=== PATIENT | female | born 1960 | race African-American/Black ===

== ENCOUNTER 2017-03-27 21:24 | Emergency (ER) | payer MEDICAID, OTHER ==
[~2017-03-27] VITALS: Ht 170.2 cm; Wt 60.8 kg
[~2017-03-27 21:24] MED LIST: DITROPAN10 MG ORAL; TAPAZOLE10 MG ORAL
[2017-03-27] MEDS ORDERED: oxyCODONE HCL/Acetaminophen 5/325mg ORAL ONE (22:45)
[2017-03-28 02:01] VITALS: BP 109/66
--- NOTE | 2017-03-28 03:33 | Emergency Room Report ---
History of Present Illness General Chief Complaint: Lower Extremity Injury Source: Patient Present Illness HPI 56YOF with 1 week right hip pain radiating to right thigh, anterior part of right thigh Denies calf pain/swelling/ttp Started after driving 1 hour Denies trauma Had bilateral hip replacement a while ago Was injecting herself with ?lovenox as recent as 4 months prior but not sure why Denies history of DVT, PE Allergies: Coded Allergies: No Known Allergies (Unverified , 01/09/14) Patient History Past Medical History: none Past Surgical History: other - hip replacement Pertinent Family History: none Social History: Denies: smoking, alcohol use, drug use Last Menstrual Period: None Now: No Immunizations: UTD Reviewed Nursing Documentation: PMH: Agreed, PSxH: Agreed Review of Systems All Other Systems: negative except mentioned in HPI Physical Exam Vital Signs Date Time Temp Pulse Resp B/P (MAP) Pulse Ox O2 Delivery O2 Flow Rate FiO2 03/27/17 21:46 97.3 71 18 109/66 98 Room Air Sp02 EP Interpretation: reviewed, normal General Appearance: normal inspection, well appearing, no apparent distress, alert Head: atraumatic ENT: normal ENT inspection, hearing grossly normal, normal voice Neck: normal inspection, full range of motion, supple, no bony tend Respiratory: normal inspection, lungs clear, normal breath sounds, no respiratory distress, no retraction, no wheezing Gastrointestinal: normal inspection, normal bowel sounds, non tender, soft, no guarding, no hernia Genitourinary: no CVA tenderness Musculoskeletal: non-tender, no calf tenderness, Korey's Sign negative, other - Right hip: ROM intact. Post-surgical scar overlying hip seen. pelvis stable. Neurologic: normal inspection, alert, responsive, speech normal Psychiatric: normal inspection, judgement/insight normal, mood/affect normal Skin: normal inspection, normal color, no rash Lymphatic: normal inspection Medical Decision Making Diagnostic Impression: Primary Impression: Hip pain, acute Qualified Codes: M25.551 - Pain in right hip ER Course Pelvis [address] Compa Flanagan MD No fx, dislocation hardware intact bilaterally Ultrasound negative for DVT on techs verbal report Reassured patient DC home Last Vital Signs Date Time Temp Pulse Resp B/P (MAP) Pulse Ox O2 Delivery O2 Flow Rate FiO2 03/28/17 02:01 97.4 18 109/66 98 Room Air 03/27/17 21:46 71 Status: improved Disposition: HOME, SELF-CARE Condition: Improved Patient Instructions: Hip Pain Additional Instructions: - Xray shows hardware intact - no DVT on ultrasound - Follow up with your doctor in 1 week COMPA FLANAGAN M.D. Mar 28, 2017 03:33
--- NOTE | 2017-03-28 11:35 | Diagnostic Imaging Report ---
Indication: PAIN Technique: One view of the pelvis Comparison: None Findings: There is a right hip arthroplasty prosthesis in place. There is a left hip hemiarthroplasty prosthesis in place. No acute fractures. Sacroiliac joint spaces are preserved. There are vascular calcifications Impression: No acute process
--- NOTE | 2017-03-30 09:41 | Diagnostic Imaging Report ---
APPROVED REPORT CPT Code: 58004 Present Symptoms Lower Extremity Pain: Right RIGHT LEG: Venous imaging reveals a patent deep venous system. There is no evidence of thrombus within the femoral, popliteal or tibial segments. The greater saphenous vein is also within normal limits. Doppler indicates normal spontaneous flow within these segments.
== END 2017-03-28 02:01 | disposition home or self-care (01) ==
LOC: EMR 21:59
DX: M25.551 Pain in right hip (principal); M79.651 Pain in right thigh; Z96.643 Presence of artificial hip joint, bilateral
CPT/HCPCS: 72170; 93971; 99283

== ENCOUNTER 2017-10-22 17:14 | Emergency (ER) | payer OTHER ==
[~2017-10-22] VITALS: Ht 170.2 cm; Wt 62.6 kg
[2017-10-22 17:33] VITALS: BP 161/84
--- NOTE | 2017-10-22 17:43 | Emergency Room Report ---
History of Present Illness General Chief Complaint: Upper Extremity Injury Source: Patient (Gaudencio Yang) Present Illness HPI 57-year-old female patient presents to ER complaining of left wrist pain status post injury a few hours ago. 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 Patient reports unable to move wrist. Patient reports swelling at left wrist. Patient denies fever, chest pain, shortness of breath. She denies hitting her head loss consciousness. (Gaudencio Yang) Allergies: Coded Allergies: No Known Allergies (Unverified , 01/09/14) Patient History Past Medical History: see triage record Last Menstrual Period: N/A Now: No Reviewed Nursing Documentation: PMH: Agreed; PSxH: Agreed (Gaudencio Yang) Nursing Documentation-PMH Past Medical History: No History, Except For (Gaudencio Yang) Review of Systems All Other Systems: negative except mentioned in HPI (Gaudencio Yang) Physical Exam Vital Signs Date Time Temp Pulse Resp B/P (MAP) Pulse Ox O2 Delivery O2 Flow Rate FiO2 10/22/17 17:21 98.0 80 18 165/83 97 Room Air 98.1 Sp02 EP Interpretation: reviewed, normal General Appearance: well appearing, no apparent distress, alert, GCS 15, non- toxic Head: normocephalic, atraumatic Respiratory: lungs clear, normal breath sounds, no rhonchi, no respiratory distress, no accessory muscle use, no wheezing, speaking full sentences Cardiovascular #1: regular rate, rhythm, no edema Cardiovascular #2: 2+ radial (R), 2+ radial (L) Musculoskeletal: back normal, digits/nails normal, gait/station normal, decreased range of motion, swelling, other - cap refill <2sec, sensation intact to light touch, tender Neurologic: alert, oriented x3, responsive, motor strength/tone normal, sensory intact (Gaudencio Yang) Medical Decision Making PA Attestation Dr. Jose is my supervising Physician whom patient management has been discussed with. (Gaudencio Yang) Diagnostic Impression: Primary Impression: Radius fracture ER Course Pt. presents to the ED c/o left wrist pain. Ddx considered but are not limited to fracture, sprain, strain, contusion, dislocation. Vital signs: are WNL, pt. is afebrile Ordered X-ray and pain medication. ER COURSE Provided with pain medication. An X-ray of the left wrist was ordered, results show distal radius fracture, per the preliminary reading. Consult with Dr. Jose, does not require reduction in ER at this time, f/u with ortho. Discuss results of x-ray with patient informed patient of distal radial fracture , needs follow with orthopedics this week if unable to eat with orthopedic [place]oped[place] [facility] [place] [facility], needs follow-up this week for further orthopedic evaluation. Patient reports she will follow-up tomorrow. Reports pain symptoms improved. Splint was applied to the left wrist, sling provided, was checked afterwards by me showing good alignment and support with distal neurovascular functioning intact. Patient instructed on RICE method: rest, ice, compression, elevation. Patient instructed to NWB. Followup with primary care provider for medical clearance to return to activities. Discuss referral to ortho/pain management/PT as needed. Discuss further imaging with MRI/CT as needed. patient reports relief of pain symptoms with treatment provided in ER.. DISCHARGE: -Rx provided for [place] for pain symptoms. At this time pt. is stable for d/c to home. Patient is resting comfortably, in no acute distress, nontoxic appearing, talking without difficulty. Will provide printed patient care instructions, and any necessary prescriptions. Patient instructed to follow with primary care provider in 3 - 5 days and to request further orthopedic follow-up. Care plan and follow up instructions have been discussed with the patient prior to discharge. Take medications as directed. Patient questions asked and answered. Patient reports understanding and agreement to treatment plan. ER precautions given, patient instructed to return to ER immediately for any new or worsening of symptoms. - Please note that this Emergency Department Report was dictated using [employer] Prestigeanimal cytologist technology software, occasionally this can lead to erroneous entry secondary to interpretation by the dictation equipment. (Gaudencio Yang.) Other X-Ray Diagnostic Results Other X-Ray Diagnostic Results : X-Ray ordered: left wrist # of Views/Limited Vs Complete: 3 View Indication: Pain EP Interpretation: Yes PA Xray: Interpretation reviewed, by supervising MD, and agrees with findings. Interpretation: no dislocation, other - distal radius fracture Impression: Other PA Scribe Text Miky Yang PA-C (Gaudencio Yang) Other X-Ray Diagnostic Results : Electronically Signed by: Scribe documentation reviewed by me and is accurate, Raimundo Jose MD. (Raimundo Jose M.D.) Last Vital Signs Date Time Temp Pulse Resp B/P (MAP) Pulse Ox O2 Delivery O2 Flow Rate FiO2 10/22/17 17:33 98.0 83 18 161/84 96 Room Air 98.0 (Gaudencio Yang) Disposition: HOME, SELF-CARE Condition: Stable Scripts Hydrocodone Bit/Acetaminophen 5-325* (NORCO 5-325*) 1 Each Tablet 1 TAB ORAL Q6H PRN for For Pain, #12 TAB 0 Refills Prov: Gaudencio Yang 10/22/17 Patient Instructions: Radius Fracture With [facility] Additional Instructions: Patient instructed to follow up with primary care provider and discuss further referral to orthopedics. Needs ortho evaluation this week. [place] [facility] [place] [facility] for [facility]opedic referral and appointment if unable to see PCP. Patient instructed on RICE method: rest, ice, compression, elevation. Patient instructed to NWB. Take medications as directed. Patient questions asked and answered. ER precautions given, patient instructed to return to ER immediately for any new or worsening of symptoms. Gaudencio Yang October 22, 2017 17:43 Raimundo Jose M.D. October 23, 2017 05:02
[2017-10-22] MEDS ORDERED: Norco 5mg/325mg tab ORAL ONE ×2 (17:45→19:15)
[2017-10-22] MEDS ORDERED: Ketorolac 30mg Inj IM ONE (17:45)
[2017-10-22] MEDS ORDERED: NORCO 5-325 TA1 EACH ORAL (18:42)
[2017-10-22 19:23] VITALS: BP 0/0
--- NOTE | 2017-10-23 09:40 | Diagnostic Imaging Report ---
Indication: Pain left wrist pain Findings: 3 views of the left wrist were obtained. There is a slightly impacted comminuted fracture of the radius and into the radiocarpal joint. Ulnar styloid fracture also noted. Soft tissue swelling demonstrated. IMPRESSION: Acute fracture as described above
== END 2017-10-22 19:23 | disposition home or self-care (01) ==
LOC: EMR 17:52
DX: S52.92XA Unspecified fracture of left forearm, initial encounter for closed fracture (principal); S52.612A Displaced fracture of left ulna styloid process, initial encounter for closed fracture; X50.0XXA Overexertion from strenuous movement or load, initial encounter; Y92.9 Unspecified place or not applicable
CPT/HCPCS: 73110; 96372; 99283; J1885

== ENCOUNTER 2018-01-08 12:20 | Emergency (ER) | payer OTHER ==
[~2018-01-08] VITALS: Ht 170.2 cm; Wt 60.8 kg
[~2018-01-08 12:20] MED LIST changes: +NORCO 5-325 TA1 EACH ORAL
[2018-01-08 12:34] VITALS: BP 95/55
[2018-01-08] MEDS ORDERED: Metoclopramide 10mg/2ml Inj IVP ONE (13:15)
[2018-01-08] MEDS ORDERED: DiphenhydrAMINE 50mg/ml Inj IVP ONE (13:15)
[2018-01-08 13:23] LABS: HEMATOCRIT 38.1 % (37.0-47.0); HEMOGLOBIN 11.2 G/DL (12.0-16.0); MEAN CORPUSCULAR VOLUME 80 FL (80-99); PLATELET COUNT 416 K/UL (150-450); RED BLOOD COUNT 4.76 M/UL (4.20-5.40); WHITE BLOOD COUNT 8.1 K/UL (4.8-10.8)
[2018-01-08 13:35] LABS: ANION GAP 15 mmol/L (5-15); BLOOD UREA NITROGEN 11 mg/dL (7-18); CALCIUM 9.5 MG/DL (8.5-10.1); CARBON DIOXIDE 23 MMOL/L (21-32); CHLORIDE 106 MMOL/L (98-107); CREATININE 0.7 MG/DL (0.55-1.30); POTASSIUM 3.4 MMOL/L (3.5-5.1); SODIUM 144 MMOL/L (136-145)
[2018-01-08 13:59] LABS: ALANINE AMINOTRANSFERASE 16 U/L (12-78); ALBUMIN 3.8 G/DL (3.4-5.0); ALBUMIN/GLOBULIN RATIO 0.8 (1.0-2.7); ALKALINE PHOSPHATASE 75 U/L (46-116); ASPARTATE AMINO TRANSFERASE 15 U/L (15-37); BILIRUBIN,TOTAL 0.4 MG/DL (0.2-1.0); CKMB < 0.5 NG/ML (0.0-3.6); CREATINE KINASE 46 U/L (26-308)
[2018-01-08 14:28] LABS: APPEARANCE,URINE CLEAR; BILIRUBIN, URINE NEGATIVE (NEGATIVE); COLOR,URINE PALE YELLOW; GLUCOSE, URINE (UA) NEGATIVE (NEGATIVE); KETONES,URINE 3+ (NEGATIVE); LEUKOCYTE ESTERASE ,URINE 3+ (NEGATIVE); NITRITE,URINE NEGATIVE (NEGATIVE); PH,URINE 6.5 (4.5-8.0); PROTEIN,URINE 1+ (NEGATIVE); UROBILINOGEN,URINE NORMAL MG/DL (0.0-1.0)
[2018-01-08 14:30] VITALS: BP 141/59
--- NOTE | 2018-01-08 14:52 | Diagnostic Imaging Report ---
Indication: Chest pain and shortness of breath Technique: XRAY Chest 1v Comparison: 01/09/2014 Findings: Heart size and mediastinal contours are within normal limits and stable compared to the prior exam. There is no focal consolidation, pneumothorax or pleural effusion. Osseous structures demonstrate no acute abnormality. Impression: No radiographic evidence of acute cardiopulmonary disease.
[2018-01-08] MEDS ORDERED: Morphine Sulfate 4mg/ml Inj (IV USE ONLY) IVP ONE (15:30)
[2018-01-08] MEDS ORDERED: cefTRIAXone 1 GM in NS 55 ML IVPB ONE (15:30)
--- NOTE | 2018-01-08 15:42 | Emergency Room Report ---
History of Present Illness General Chief Complaint: Dyspnea/Respdistress Source: Patient, Medical Record Present Illness HPI This patient states that she has had lower abdominal pain, nausea, vomiting started today. She denies fever or chills. She denies cough or congestion. She denies chest pain. She states when she vomits she felt short of breath. She denies headache or neck pain. She denies blurry vision. She has no other complaints. Allergies: Coded Allergies: No Known Allergies (Unverified , 01/09/14) Patient History Past Medical History: see triage record, COPD, other - Hyperthyroid Social History: Reports: smoking; Denies: alcohol use, drug use Last Menstrual Period: 3 yrs ago Reviewed Nursing Documentation: PMH: Agreed; PSxH: Agreed Nursing Documentation-PMH Past Medical History: No History, Except For Hx COPD: Yes Review of Systems All Other Systems: negative except mentioned in HPI Physical Exam Vital Signs Date Time Temp Pulse Resp B/P (MAP) Pulse Ox O2 Delivery O2 Flow Rate FiO2 01/08/18 12:24 98.0 77 18 95/55 100 Room Air 98.1 Sp02 EP Interpretation: reviewed, normal General Appearance: no apparent distress, alert, GCS 15, non-toxic Head: normocephalic, atraumatic Eyes: bilateral eye normal inspection, bilateral eye PERRL ENT: hearing grossly normal, normal pharynx, no angioedema, normal voice Neck: full range of motion, supple/symm/no masses Respiratory: chest non-tender, lungs clear, normal breath sounds, no respiratory distress, no retraction, no accessory muscle use, speaking full sentences Cardiovascular #1: regular rate, rhythm, no edema Gastrointestinal: normal bowel sounds, soft, non-distended, no guarding, no rebound, tenderness - TTP suprapubic Rectal: deferred Musculoskeletal: back normal, gait/station normal, normal range of motion, non- tender Neurologic: alert, oriented x3, responsive, motor strength/tone normal, sensory intact, speech normal Psychiatric: judgement/insight normal, memory normal, mood/affect normal, no suicidal/homicidal ideation Skin: normal color, no rash, warm/dry, well hydrated Medical Decision Making Diagnostic Impression: Primary Impression: Pyelonephritis ER Course This patient is found to have pyelonephritis. Was planning on discharging this patient home, however, the patient had recurrent vomiting here in the emergency department despite IV antiemetics. The patient was given IV fluids and broad- spectrum antibiotics. Patient was unable to tolerate oral here in the emergency department, therefore, I felt that it was unsafe for this patient to be discharged home on oral therapy. The patient's [facility] company [facility] The patient was transferred in stable condition. Laboratory Tests Test 01/08/18 13:00 01/08/18 14:10 White Blood Count 8.1 K/UL (4.8-10.8) Red Blood Count 4.76 M/UL (4.20-5.40) Hemoglobin 11.2 G/DL (12.0-16.0) L Hematocrit 38.1 % (37.0-47.0) Mean Corpuscular Volume 80 FL (80-99) Mean Corpuscular Hemoglobin 23.6 PG (27.0-31.0) L Mean Corpuscular Hemoglobin Concent 29.5 G/DL (32.0-36.0) L Red Cell Distribution Width 17.0 % (11.6-14.8) H Platelet Count 416 K/UL (150-450) Mean Platelet Volume 6.2 FL (6.5-10.1) L Neutrophils (%) (Auto) % (45.0-75.0) Lymphocytes (%) (Auto) % (20.0-45.0) Monocytes (%) (Auto) % (1.0-10.0) Eosinophils (%) (Auto) % (0.0-3.0) Basophils (%) (Auto) % (0.0-2.0) Differential Total Cells Counted 100 Neutrophils % (Manual) 84 % (45-75) H Lymphocytes % (Manual) 9 % (20-45) L Monocytes % (Manual) 7 % (1-10) Eosinophils % (Manual) 0 % (0-3) Basophils % (Manual) 0 % (0-2) Band Neutrophils 0 % (0-8) Platelet Estimate Adequate Platelet Morphology Normal Anisocytosis 1+ Sodium Level 144 MMOL/L (136-145) Potassium Level 3.4 MMOL/L (3.5-5.1) L Chloride Level 106 MMOL/L (98-107) Carbon Dioxide Level 23 MMOL/L (21-32) Anion Gap 15 mmol/L (5-15) Blood Urea Nitrogen 11 mg/dL (7-18) Creatinine 0.7 MG/DL (0.55-1.30) Estimate Glomerular Filtration Rate > 60 mL/min (>60) Glucose Level 118 MG/DL (74-106) H Calcium Level 9.5 MG/DL (8.5-10.1) Total Bilirubin 0.4 MG/DL (0.2-1.0) Aspartate Amino Transferase (AST) 15 U/L (15-37) Alanine Aminotransferase (ALT) 16 U/L (12-78) Alkaline Phosphatase 75 U/L (46-116) Total Creatine Kinase 46 U/L (26-308) Creatine Kinase MB < 0.5 NG/ML (0.0-3.6) Creatine Kinase MB Relative Index 1.0 Troponin I 0.000 ng/mL (0.000-0.056) Total Protein 8.6 G/DL (6.4-8.2) H Albumin 3.8 G/DL (3.4-5.0) Globulin 4.8 g/dL Albumin/Globulin Ratio 0.8 (1.0-2.7) L Urine Color Pale yellow Urine Appearance Clear Urine pH 6.5 (4.5-8.0) Urine Specific [place] 1.010 (1.005-1.035) Urine Protein 1+ (NEGATIVE) H Urine Glucose (UA) Negative (NEGATIVE) Urine Ketones 3+ (NEGATIVE) H Urine Occult Blood 3+ (NEGATIVE) H Urine Nitrite Negative (NEGATIVE) Urine Bilirubin Negative (NEGATIVE) Urine Urobilinogen Normal MG/DL (0.0-1.0) Urine Leukocyte Esterase 3+ (NEGATIVE) H Urine RBC 2-4 /HPF (0 - 2) H Urine WBC 30-40 /HPF (0 - 2) H Urine Squamous Epithelial Cells Few /LPF (NONE/OCC) Urine Bacteria Few /HPF (NONE) Urine Opiates Screen Positive (NEGATIVE) H Urine Barbiturates Screen Negative (NEGATIVE) Phencyclidine (PCP) Screen Negative (NEGATIVE) Urine Amphetamines Screen Negative (NEGATIVE) Urine Benzodiazepines Screen Negative (NEGATIVE) Urine Cocaine Screen Negative (NEGATIVE) Urine Marijuana (THC) Screen Negative (NEGATIVE) EKG Diagnostic Results Rate: normal Rhythm: NSR ST Segments: no acute changes Rhythm Strip Diag. Results EP Interpretation: yes Rate: 70's Rhythm: NSR, no PVC's, no ectopy Chest X-Ray Diagnostic Results Chest X-Ray Diagnostic Results : Chest X-Ray Ordered: Yes # of Views/Limited/Complete: 1 View Indication: Other Interpretation: no consolidation, no effusion, no pneumothorax, no acute cardiopulmonary disease Impression: No acute disease Electronically Signed by: Ed Last Vital Signs Date Time Temp Pulse Resp B/P (MAP) Pulse Ox O2 Delivery O2 Flow Rate FiO2 01/08/18 15:25 98.4 01/08/18 14:30 78 19 141/59 100 Room Air Status: improved Disposition: ER [facility] Condition: Stable Referrals: [facility],REFERRING (PCP) Merle Wood DO Jan 08, 2018 15:42
[2018-01-08 16:30] VITALS: BP 121/56
[2018-01-08 18:26] VITALS: BP 136/54
[2018-01-08 19:10] VITALS: BP 136/54
--- NOTE | 2018-01-10 15:46 | Cardiology Report ---
APPROVED REPORT EKG Measurement Heart [id number] ME 206P [id number] Normal sinus rhythm Normal ECG
== END 2018-01-08 19:26 | disposition other institution (70) ==
LOC: EMR 13:05
DX: N12 Tubulo-interstitial nephritis, not specified as acute or chronic (principal); J44.9 Chronic obstructive pulmonary disease, unspecified
CPT/HCPCS: 36415; 71045; 80053; 80307; 81003; 82550; 82553; 84484; 85007; 85025; 87086; 93005; 96361; 96365; 96375; 99284; J0696; J1200; J2270; J2405; J2765

== ENCOUNTER 2019-03-04 22:32 | Inpatient (IN) | payer OTHER ==
[~2019-03-04] VITALS: Ht 170.2 cm; Wt 62.6 kg
[2019-03-04] MEDS ORDERED: Solu-MEDROL 125mg Inj IVP ONE (23:00)
[2019-03-04] MEDS ORDERED: Ipratropium 0.02% Inh Soln 2.5ml UD HHN ONE (23:00)
[2019-03-04] MEDS ORDERED: Morphine Sulfate 4mg/ml Inj (IV USE ONLY) IVP ONE (23:00)
--- NOTE | 2019-03-04 23:00 | NUR ---
ED Nurse Note: Recieved pt from home, here with c/o left side pain aned mild intermttent sob, pt has hx of copd, denies cp and immediately asking for dilaudid pain meds, pt gowned and placed on cardiac monitoring, no fevers, nausea or vomiting and pt o2 sat=98% on ra, will resume care as ordered and closely monitor.
[2019-03-04] MEDS: Albuterol ud Inhalation HHN SCH ×3 (23:17→23:49)
[2019-03-04] MEDS ORDERED: HYDROmorphone 1mg/ml Carpuject IVP ONE (23:30)
[2019-03-04 23:33] LABS: BASOPHILS % (AUTO) 2.5 % (0.0-2.0); EOSINOPHILS % (AUTO) 1.8 % (0.0-3.0); HEMATOCRIT 39.9 % (37.0-47.0); HEMOGLOBIN 12.3 G/DL (12.0-16.0); LYMPHOCYTES % (AUTO) 42.9 % (20.0-45.0); MEAN CORPUSCULAR VOLUME 80 FL (80-99); MONOCYTES % (AUTO) 6.3 % (1.0-10.0); NEUTROPHILS % (AUTO) 46.5 % (45.0-75.0); PLATELET COUNT 423 K/UL (150-450); RED BLOOD COUNT 5.01 M/UL (4.20-5.40); RED CELL DISTRIBUTION WIDTH 16.7 % (11.6-14.8); WHITE BLOOD COUNT 8.7 K/UL (4.8-10.8)
[2019-03-04 23:37] LABS: APPEARANCE,URINE CLOUDY; BILIRUBIN, URINE NEGATIVE (NEGATIVE); COLOR,URINE PALE YELLOW; GLUCOSE, URINE (UA) NEGATIVE (NEGATIVE); KETONES,URINE NEGATIVE (NEGATIVE); LEUKOCYTE ESTERASE ,URINE 3+ (NEGATIVE); NITRITE,URINE NEGATIVE (NEGATIVE); PH,URINE 6 (4.5-8.0); PROTEIN,URINE 3+ (NEGATIVE); UROBILINOGEN,URINE NORMAL MG/DL (0.0-1.0)
[2019-03-04 23:48] LABS: INR 0.9 (0.9-1.1)
[2019-03-04 23:50] LABS: ANION GAP 10 mmol/L (5-15); BLOOD UREA NITROGEN 17 mg/dL (7-18); CARBON DIOXIDE 27 MMOL/L (21-32); CHLORIDE 101 MMOL/L (98-107); CREATININE 1.2 MG/DL (0.55-1.30); POTASSIUM 3.8 MMOL/L (3.5-5.1); SODIUM 138 MMOL/L (136-145)
[2019-03-05] VITALS (8 sets, daily range): BP systolic 99–139; BP diastolic 50–77
[2019-03-05 00:01] LABS: ALANINE AMINOTRANSFERASE < 6 U/L (12-78); ALBUMIN 3.3 G/DL (3.4-5.0); ALBUMIN/GLOBULIN RATIO 0.6 (1.0-2.7); ALKALINE PHOSPHATASE 78 U/L (46-116); ASPARTATE AMINO TRANSFERASE 17 U/L (15-37); BILIRUBIN,TOTAL 0.2 MG/DL (0.2-1.0); CREATINE KINASE 64 U/L (26-308)
--- NOTE | 2019-03-05 00:21 | Emergency Room Report ---
History of Present Illness General Chief Complaint: Pain Source: Patient Present Illness HPI Patient presents with increased dyspnea over the last week. Tonight she started having left-sided chest pain rating to her left arm. She is unable to produce any phlegm at this time. She used to have a nebulizer but not at this time. This is not her worst attack. She rates the pain 8/10 and more pressure. Is somewhat pleuritic. She denies any fevers or chills. Denies sore throat or nasal congestion. No nausea vomiting or diarrhea. Patient had turbid urine also. No palpitations, abdominal pain, joint pain, rashes, depression, anxiety, visual changes, headache. Allergies: Coded Allergies: No Known Allergies (Unverified , 01/09/14) Patient History Past Medical History: see triage record Social History: Reports: smoking Social History Narrative From home Last Menstrual Period: >5years ago Reviewed Nursing Documentation: PMH: Agreed; PSxH: Agreed Nursing Documentation-PMH Hx COPD: Yes Review of Systems All Other Systems: negative except mentioned in HPI Physical Exam Vital Signs Date Time Temp Pulse Resp B/P (MAP) Pulse Ox O2 Delivery O2 Flow Rate FiO2 03/04/19 22:34 97.9 69 16 149/81 (103) 94 Room Air 03/04/19 23:17 21 Sp02 EP Interpretation: reviewed, abnormal - Interpreted as slightly low by me General Appearance: no apparent distress, alert, Chronically Ill Head: normocephalic, atraumatic Eyes: bilateral eye PERRL, bilateral eye EOMI, bilateral eye other - Arcus ENT: moist mucus membranes Neck: supple Respiratory: chest non-tender, no respiratory distress, no retraction, wheezing , expiration Cardiovascular #1: regular rate, rhythm, no edema Cardiovascular #2: 2+ radial (R) Gastrointestinal: normal inspection, normal bowel sounds, non tender, no mass, non-distended Musculoskeletal: normal range of motion, no calf tenderness, Korey's Sign negative Neurologic: alert, grossly normal Psychiatric: mood/affect normal, depressed affect Skin: no rash Medical Decision Making Diagnostic Impression: Primary Impression: COPD exacerbation Additional Impressions: Chest pain Qualified Codes: R07.9 - Chest pain, unspecified UTI (urinary tract infection) Qualified Codes: N30.00 - Acute cystitis without hematuria ER Course Patient presents with dyspnea and left-sided chest pain. Differential includes exacerbation of COPD, acute myocardial infarction, unstable angina, bronchitis, pneumonia, pulmonary embolus amongst others. Patient evaluated with EKG, chest x-ray and labs. Clinically low risk for pulmonary embolus. Patient is treated with IV Solu-Medrol and breathing treatments and her pain is also treated. Aspirin is given. The patient is placed on a plastic surgeon. EKG sinus rhythm with nonspecific ST-T wave changes. Chest x-ray with COPD without infiltrate. Labs with normal white count. CMP essentially unremarkable. Initial troponin negative. Urinalysis with pyuria. Antibiotics begun for UTI. Initial troponin neg. Imp after breathing treatments. Still needs observation and repeat troponins. In addition the COPD will require ongoing breathing treatments. Patient admitted to telemetry Dr. Tang. Laboratory Tests Test 03/04/19 23:00 03/04/19 23:05 Urine Color Pale yellow Urine Appearance Cloudy Urine pH 6 (4.5-8.0) Urine Specific [place] 1.015 (1.005-1.035) Urine Protein 3+ (NEGATIVE) H Urine Glucose (UA) Negative (NEGATIVE) Urine Ketones Negative (NEGATIVE) Urine Blood 5+ (NEGATIVE) H Urine Nitrite Negative (NEGATIVE) Urine Bilirubin Negative (NEGATIVE) Urine Urobilinogen Normal MG/DL (0.0-1.0) Urine Leukocyte Esterase 3+ (NEGATIVE) H Urine RBC Tntc /HPF (0 - 2) H Urine WBC Tntc /HPF (0 - 2) H Urine Squamous Epithelial Cells Few /LPF (NONE/OCC) Urine Bacteria Many /HPF (NONE) H White Blood Count 8.7 K/UL (4.8-10.8) Red Blood Count 5.01 M/UL (4.20-5.40) Hemoglobin 12.3 G/DL (12.0-16.0) Hematocrit 39.9 % (37.0-47.0) Mean Corpuscular Volume 80 FL (80-99) Mean Corpuscular Hemoglobin 24.6 PG (27.0-31.0) L Mean Corpuscular Hemoglobin Concent 30.9 G/DL (32.0-36.0) L Red Cell Distribution Width 16.7 % (11.6-14.8) H Platelet Count 423 K/UL (150-450) Mean Platelet Volume 6.4 FL (6.5-10.1) L Neutrophils (%) (Auto) 46.5 % (45.0-75.0) Lymphocytes (%) (Auto) 42.9 % (20.0-45.0) Monocytes (%) (Auto) 6.3 % (1.0-10.0) Eosinophils (%) (Auto) 1.8 % (0.0-3.0) Basophils (%) (Auto) 2.5 % (0.0-2.0) H Prothrombin Time 9.6 SEC (9.30-11.50) Prothrombin Time INR 0.9 (0.9-1.1) PTT 23 SEC (23-33) Sodium Level 138 MMOL/L (136-145) Potassium Level 3.8 MMOL/L (3.5-5.1) Chloride Level 101 MMOL/L (98-107) Carbon Dioxide Level 27 MMOL/L (21-32) Anion Gap 10 mmol/L (5-15) Blood Urea Nitrogen 17 mg/dL (7-18) Creatinine 1.2 MG/DL (0.55-1.30) Estimate Glomerular Filtration Rate 56.0 mL/min (>60) Glucose Level 99 MG/DL (74-106) Lactic Acid Level 1.00 mmol/L (0.4-2.0) Calcium Level 9.0 MG/DL (8.5-10.1) Total Bilirubin 0.2 MG/DL (0.2-1.0) Aspartate Amino Transferase (AST) 17 U/L (15-37) Alanine Aminotransferase (ALT) < 6 U/L (12-78) L Alkaline Phosphatase 78 U/L (46-116) Total Creatine Kinase 64 U/L (26-308) Pro-B-Type Natriuretic Peptide 21 pg/mL (0-125) Total Protein 8.5 G/DL (6.4-8.2) H Albumin 3.3 G/DL (3.4-5.0) L Globulin 5.2 g/dL Albumin/Globulin Ratio 0.6 (1.0-2.7) L Lipase 169 U/L (73-393) EKG Diagnostic Results Rate: normal Rhythm: NSR ST Segments: no acute changes - Nonspecific ST-T wave changes ASA given to the pt in ED: Yes Rhythm Strip Diag. Results EP Interpretation: yes Rhythm: NSR, no PVC's, no ectopy Chest X-Ray Diagnostic Results Chest X-Ray Diagnostic Results : Chest X-Ray Ordered: Yes # of Views/Limited/Complete: 1 View Indication: Other EP Interpretation: Yes Interpretation: no consolidation, no effusion, no pneumothorax, other - COPD Impression: Other Electronically Signed by: Electronically signed by Raimundo Jose MD Last Vital Signs Date Time Temp Pulse Resp B/P (MAP) Pulse Ox O2 Delivery O2 Flow Rate FiO2 03/05/19 02:00 98.4 78 17 115/61 96 Room Air 21 Status: improved Disposition: ADMITTED INPATIENT Condition: Serious Referrals: [facility],REFERR[facility] (PCP) Raimundo Jose MD Mar 05, 2019 00:21
[2019-03-05] MEDS ORDERED: cefTRIAXone 1 GM in NS 55 ML IVPB ONE (00:30)
--- NOTE | 2019-03-05 01:00 | NUR ---
ED Nurse Note: MEDS GIVEN FOR PAIN EFFECTIVE, PT SLEEPING, AROUSES EASILY TO VERBAL STIMULI, V/S STABLE, NO SOB OR LABORED BREATHING, O2 SAT=97% ON RA, IV SITE PATENT, PT WAITING FOR ADMIT BED FOR ADMISSION, NAD OR CHANGES NOTED.
[2019-03-05] MEDS ORDERED: Nitroglycerin Subl 0.4mg tab SL PRN (01:45)
--- NOTE | 2019-03-05 03:25 | NUR ---
ED Nurse Note: PT HAS ROOM FOR ADMISSION, REPORT CALLED TO FLOOR NURSE LETTY BARBOSA, PT CONTINUES TO REST QUIETLY IN BED, SLEEPING, AROUSES EASILY TO VERBAL STIMULI, DENIES PAIN, IV SITE PATENT, PT HAS ALL BELONGINGS, PT TAKEN TO FLOOR BED VIA GURNEY WITH [facility], NAD NOTED DURING PT TRANSPORT.
--- NOTE | 2019-03-05 04:10 | NUR ---
NURSE NOTES: Received pt. and report from LETTY Palomo from ED. Pt. came in via gurney. Pt. Awake showing no signs of acute distress. AOx4. Respiration even and non labored on room air. No sob noted. No c/o chest pain. VS BP 104/56, HR 66, T 97, O2 sat 93%, Resp 18. case monitor on showing SR. IV on right FA patent and intact. Pt. ambulates w/ steady gait. Oriented to room and location. Bed in lowest position, wheels locked and call button within reach. All needs attended and met. Will continue plan of care.
--- NOTE | 2019-03-05 07:40 | NUR ---
HAND-OFF: Report given to LETTY Presley.
[2019-03-05] MEDS: Aspirin Baby 81mg ORAL SCH (08:39)
--- NOTE | 2019-03-05 08:40 | Consultation ---
History of Present Illness General Date patient seen: Mar 05, 2019 Time patient seen: 08:39 Chief Complaint: Pain Present Illness HPI The patient is a 58-year-old female, who was admitted overnight for further evaluation and care of increased shortness of breath and dyspnea over the past week and has started developing some left-sided chest pain radiating down her arm with some productive cough. 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 However, she was still short of breath and chest pain. As such, she presented to the emergency room for further evaluation and care. She denies any current nausea, vomiting, or diarrhea. Allergies: Coded Allergies: No Known Allergies (Unverified , 01/09/14) Medication History Scheduled Methimazole (Methimazole), 10 MG ORAL THREE TIMES A DAY, (Reported) Oxybutynin Chloride (Oxybutynin Chloride), 10 MG ORAL QHS, (Reported) Scheduled PRN Hydrocodone Bit/Acetaminophen 5-325* ([place] 5-325*), 1 TAB ORAL Q6H PRN for For Pain Patient History Healthcare decision maker Resuscitation status Full Code Advanced Directive on File Review of Systems Constitutional: Reports: no symptoms Eye: Reports: no symptoms ENT: Reports: no symptoms Respiratory: Reports: shortness of breath Cardiovascular: Reports: chest pain Gastrointestinal: Reports: no symptoms Genitourinary: Reports: no symptoms Musculoskeletal: Reports: no symptoms Skin: Reports: no symptoms Psychiatric: Reports: no symptoms Neurological: Reports: no symptoms Endocrine: Reports: no symptoms Hematologic/Lymphatic: Reports: no symptoms Physical Exam General Appearance: no apparent distress, alert Lines, tubes and drains: peripheral HEENT: normocephalic, anicteric Neck: normal alignment, supple, abnormal alignment Respiratory/Chest: lungs clear, normal breath sounds, no respiratory distress, no accessory muscle use Cardiovascular/Chest: normal peripheral pulses, normal rate, regular rhythm Abdomen: normal bowel sounds, non tender, no organomegaly Extremities: normal range of motion, non-tender, normal inspection Skin Exam: normal pigmentation Neurologic: winding operator II-XII grossly normal, no motor/sensory deficits Last 24 Hour Vital Signs Date Time Temp Pulse Resp B/P (MAP) Pulse Ox O2 Delivery O2 Flow Rate FiO2 03/05/19 08:00 96.8 78 18 99/73 (82) 95 03/05/19 07:56 78 20 97 Room Air 21 03/05/19 04:00 97.0 66 18 104/56 (72) 93 03/05/19 04:00 98.4 77 17 119/64 95 Room Air 21 03/05/19 04:00 71 03/05/19 04:00 Room Air 03/05/19 03:30 98.4 77 17 119/64 95 Room Air 21 03/05/19 02:00 98.4 78 17 115/61 96 Room Air 21 03/05/19 00:30 98.4 78 17 126/77 99 Room Air 21 03/05/19 00:18 98.4 03/05/19 00:10 82 17 99 Room Air 21 03/04/19 23:50 64 18 99 03/04/19 23:48 66 18 99 Room Air 21 03/04/19 23:33 62 18 99 03/04/19 23:32 61 18 99 Room Air 21 03/04/19 23:17 58 18 98 03/04/19 23:17 58 18 98 Room Air 21 03/04/19 22:34 97.9 69 16 149/81 (103) 94 Room Air Intake and Output 03/04/19 03/05/19 19:00 07:00 # Voids 1 Laboratory Tests Test 03/04/19 23:00 03/04/19 23:05 03/05/19 04:00 Urine Color Pale yellow Urine Appearance Cloudy Urine pH 6 (4.5-8.0) Urine Specific Wink 1.015 (1.005-1.035) Urine Protein 3+ (NEGATIVE) H Urine Glucose (UA) Negative (NEGATIVE) Urine Ketones Negative (NEGATIVE) Urine Blood 5+ (NEGATIVE) H Urine Nitrite Negative (NEGATIVE) Urine Bilirubin Negative (NEGATIVE) Urine Urobilinogen Normal MG/DL (0.0-1.0) Urine Leukocyte Esterase 3+ (NEGATIVE) H Urine RBC Tntc /HPF (0 - 2) H Urine WBC Tntc /HPF (0 - 2) H Urine Squamous Epithelial Cells Few /LPF (NONE/OCC) Urine Bacteria Many /HPF (NONE) H White Blood Count 8.7 K/UL (4.8-10.8) Red Blood Count 5.01 M/UL (4.20-5.40) Hemoglobin 12.3 G/DL (12.0-16.0) Hematocrit 39.9 % (37.0-47.0) Mean Corpuscular Volume 80 FL (80-99) Mean Corpuscular Hemoglobin 24.6 PG (27.0-31.0) L Mean Corpuscular Hemoglobin Concent 30.9 G/DL (32.0-36.0) L Red Cell Distribution Width 16.7 % (11.6-14.8) H Platelet Count 423 K/UL (150-450) Mean Platelet Volume 6.4 FL (6.5-10.1) L Neutrophils (%) (Auto) 46.5 % (45.0-75.0) Lymphocytes (%) (Auto) 42.9 % (20.0-45.0) Monocytes (%) (Auto) 6.3 % (1.0-10.0) Eosinophils (%) (Auto) 1.8 % (0.0-3.0) Basophils (%) (Auto) 2.5 % (0.0-2.0) H Prothrombin Time 9.6 SEC (9.30-11.50) Prothromb Time International Ratio 0.9 (0.9-1.1) Activated Partial Thromboplast Time 23 SEC (23-33) Sodium Level 138 MMOL/L (136-145) Potassium Level 3.8 MMOL/L (3.5-5.1) Chloride Level 101 MMOL/L (98-107) Carbon Dioxide Level 27 MMOL/L (21-32) Anion Gap 10 mmol/L (5-15) Blood Urea Nitrogen 17 mg/dL (7-18) Creatinine 1.2 MG/DL (0.55-1.30) Estimat Glomerular Filtration Rate 56.0 mL/min (>60) Glucose Level 99 MG/DL (74-106) Lactic Acid Level 1.00 mmol/L (0.4-2.0) Calcium Level 9.0 MG/DL (8.5-10.1) Total Bilirubin 0.2 MG/DL (0.2-1.0) Aspartate Amino Transf (AST/SGOT) 17 U/L (15-37) Alanine Aminotransferase (ALT/SGPT) < 6 U/L (12-78) L Alkaline Phosphatase 78 U/L (46-116) Total Creatine Kinase 64 U/L (26-308) Troponin I 0.000 ng/mL (0.000-0.056) Pro-B-Type Natriuretic Peptide 21 pg/mL (0-125) Total Protein 8.5 G/DL (6.4-8.2) H Albumin 3.3 G/DL (3.4-5.0) L Globulin 5.2 g/dL Albumin/Globulin Ratio 0.6 (1.0-2.7) L Lipase 169 U/L (73-393) Urine Opiates Screen Negative (NEGATIVE) Urine Barbiturates Screen Negative (NEGATIVE) Phencyclidine (PCP) Screen Negative (NEGATIVE) Urine Amphetamines Screen Negative (NEGATIVE) Urine Benzodiazepines Screen Negative (NEGATIVE) Urine Cocaine Screen Negative (NEGATIVE) Urine Marijuana (THC) Screen Negative (NEGATIVE) Height (Feet): 5 Height (Inches): 7.00 Weight (Pounds): 126 Medications Current Medications Medications (Trade) Dose Ordered Sig/Dawna Route PRN Reason Start Time Stop Time Status Last Admin Dose Admin Acetaminophen (Tylenol) 650 mg Q4H PRN ORAL Mild Pain (Pain Scale 1-3) 03/05/19 01:45 04/04/19 01:44 Albuterol/ Ipratropium (Albuterol/ Ipratropium) 3 ml Q4HRT PRN HHN Shortness of Breath 03/05/19 01:45 03/10/19 01:44 Aspirin (ASA) 81 mg DAILY ORAL 03/05/19 09:00 04/04/19 08:59 Dextrose (Dextrose 50%) 25 ml Q30M PRN IV Hypoglycemia 03/05/19 01:45 04/04/19 01:44 Dextrose (Dextrose 50%) 50 ml Q30M PRN IV Hypoglycemia 03/05/19 01:45 04/04/19 01:44 Enoxaparin Sodium (Lovenox) 40 mg Q24H SUBQ 03/05/19 09:00 04/04/19 08:59 Famotidine (Pepcid) 40 mg DAILY ORAL 03/05/19 09:00 04/04/19 08:59 Methimazole (Tapazole) 5 mg THREE TIMES A DAY ORAL 03/05/19 09:00 04/04/19 08:59 Morphine Sulfate (Morphine Sulfate) 0.5 mg Q3H PRN IVP For Pain (4-10) 03/05/19 01:45 03/12/19 01:44 Nitroglycerin (Ntg) 0.4 mg Q5M PRN SL Prn Chest Pain 03/05/19 01:45 04/04/19 01:44 Ondansetron HCl (Zofran) 4 mg Q6H PRN IVP Nausea & Vomiting 03/05/19 01:45 04/04/19 01:44 Sodium Chloride 1,000 ml @ 50 mls/hr Q20H IV 03/05/19 02:45 04/04/19 02:44 03/05/19 04:35 Assessment/Plan Status: stable Assessment/Plan: Assessment SOB Chest pain UTi Hyper thyroid Diastolic dysfunction Plan: Lexiscan cardiolite Trend troponin Nitro prn Aspirin Statin Raimundo Lopez MD Mar 05, 2019 08:40
[2019-03-05] MEDS: Enoxaparin 40mg Inj SUBQ SCH (08:42)
[2019-03-05] MEDS: Morphine Sulfate 2mg/ml Inj(IV/IM USE ONLY) IVP PRN ×2 (08:45→12:42)
--- NOTE | 2019-03-05 08:45 | History and Physical Report ---
DATE OF ADMISSION: 03/05/2019 REASON FOR ADMISSION: 1. Shortness of breath. 2. Chest pain. HISTORY OF PRESENT ILLNESS: The patient is a 58-year-old female, who was admitted overnight for further evaluation and care of increased shortness of breath and dyspnea over the past week and has started developing some left-sided chest pain radiating down her arm with some productive cough. 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 However, she was still short of breath and chest pain. As such, she presented to the emergency room for further evaluation and care. She denies any current nausea, vomiting, or diarrhea. ALLERGIES: No known drug allergies PAST MEDICAL HISTORY: 1. Hyperthyroidism. 2. Bladder dysfunction. 3. COPD. FAMILY HISTORY: Positive for hypertension. SOCIAL HISTORY: Positive for tobacco. No alcohol or illicit drug use. PAST SURGICAL HISTORY: Noncontributory. REVIEW OF SYSTEMS: NEUROLOGIC: The patient denies headache, change in vision, syncope, or presyncopal episodes. CARDIOVASCULAR: The patient was having left-sided chest pain, radiation down the arm. No palpitations. PULMONARY: Mild shortness of breath. Nonproductive cough. GASTROINTESTINAL/GENITOURINARY: No changes in urine or bowel habits. No nausea, vomiting, or diarrhea. ENDOCRINOLOGY: No night sweats, fevers, or chills. MUSCULOSKELETAL: The patient is feeling weak, tired, and fatigued. LABORATORY DATA: Labs dated March 05, 2019. Urine drug screen negative. Sodium 138, potassium 3.8, creatinine 1.2. Troponin 0. Albumin 3.3, lipase 169. White cell count 8.7, hemoglobin 12.3, and platelet count 423. PHYSICAL EXAMINATION: VITAL SIGNS: Blood pressure 104/56, respiratory rate 18, pulse 66, temperature 97.0 with 95% oxygen saturation on room air. GENERAL: The patient awake, alert, not in distress. HEENT: Extraocular muscles intact. No lymphadenopathy noted. CARDIOVASCULAR: S1, S2. No rubs or gallops. PULMONARY: Mild expiratory wheezing. ABDOMEN: Nondistended and nontender. EXTREMITIES: No edema noted. ASSESSMENT AND PLAN: 1. Shortness of breath due to COPD exacerbation. At this time, Pulmonary has been consulted. We will defer management to them having initiated nebulizer treatments. 2. Acute coronary syndrome with chest pain, most likely pleuritic in nature. Cardiology has been consulted to rule out any underlying cardiac etiology. 3. Dehydration. Continue IV fluids. 4. Thyroid dysfunction. Continue Tapazole. 5. DVT prophylaxis with Lovenox. 6. GI prophylaxis with famotidine. Michael Bhatti MD DR: NICK JOB#: [id number] CC:
[2019-03-05] MEDS ORDERED: Aspirin Baby 81mg ORAL SCH (09:00)
--- NOTE | 2019-03-05 09:47 | NUR ---
[facility] Demographer: aKitlin Wooten [facility] Demographer: Shruthi fax#[phone] Addendum: 03/05/19 at 0947 by SOFIA HURLEY CM *-* DISREGARD THIS NOTE WRONG PATIENT *-*
--- NOTE | 2019-03-05 09:48 | NUR ---
*-* NO INSURANCE INFORMATION IN THE BAR UNABLE TO SEND CLINICALS OR REVIEWS *-*
--- NOTE | 2019-03-05 11:11 | Diagnostic Imaging Report ---
Indication: Dyspnea Comparison: 01/08/2018 A single view chest radiograph was obtained. Findings: The lungs are hyperexpanded. There is borderline cardiomegaly present. Bones are osteopenic. IMPRESSION: COPD suspected. Correlate clinically
[2019-03-05] MEDS: Solu-MEDROL 40mg Inj IVP SCH ×2 (13:56→17:28)
--- NOTE | 2019-03-05 14:00 | NUR ---
NURSE NOTES: Patient still complaining of abdominal pain. She says the morphine isn't helping her pain. She wants dilaudid. Spoke with Dr. Bhatti who said "no dilaudid." He also said to consult . Left message with him; awaiting response.
--- NOTE | 2019-03-05 15:30 | NUR ---
CASE MANAGEMENT:REVIEW 58 YR OLD FEMALE FROM HOME TO ER CC: PAIN AND SOB SI: COPD EXACERBATION. UTI 97.9 69 16 149/81 94% RA IS: DUONEB HHN IV SOLUMEDROL 1L NS BOLUS IV MORPHINE IV DILAUDID IV ROCEPHIN : TO TELEMETRY UNIT INTERQUAL CRITERIA MET
--- NOTE | 2019-03-05 16:45 | Consultation ---
DATE OF CONSULTATION: 03/05/2019 PULMONARY CONSULTATION CONSULTING PHYSICIAN: Jared Street M.D. HISTORY OF PRESENT ILLNESS: This is a 58-year-old female, who reports a history of COPD. She started having left-sided chest pain that began several days ago. She also reports shortness of breath. She came to the emergency room and was admitted for diagnosis of exacerbation of COPD. PAST MEDICAL HISTORY: Hyperthyroidism, bladder dysfunction, and COPD. PAST SURGICAL HISTORY: None. FAMILY HISTORY: Noncontributory. SOCIAL HISTORY: She admits to tobacco use. No substance abuse or marijuana. REVIEW OF SYSTEMS: Denies any headaches, hematemesis, melena, or hematochezia. PHYSICAL EXAMINATION: GENERAL: Reveals a 58-year-old female. HEENT: Unremarkable. CHEST: Clear breath sounds bilaterally. HEART: Normal heart sounds. ABDOMEN: Soft. EXTREMITIES: There is no appreciable edema. MUSCULOSKELETAL: There is no chest wall tenderness. LABORATORY AND DIAGNOSTIC DATA: Lab testing shows normal CBC and BMP. Troponin is negative. Coags are normal. Toxicology is negative. IMPRESSION: Exacerbation of COPD. DISCUSSION: Admit to the hospital. Agree with medications and care. Currently, I note the patient is on half NS, DuoNebs, Lovenox, Pepcid, Tapazole, and morphine. I will initiate low-dose Solu-Medrol and also check D-dimer. Jared Street M.D. DR: CLAUDIA JOB#: [id number] CC:
--- NOTE | 2019-03-05 17:42 | NUR ---
NURSE NOTES: Called Dr. Street. He is aware of D-dimer @ 1 and negative venous duplex. No new orders given.
--- NOTE | 2019-03-05 17:55 | Cardiology Report ---
APPROVED REPORT EXAM: Two-dimensional and M-mode echocardiogram with Doppler and color Doppler. INDICATION Chest Pain M-Mode DIMENSIONS IVSd0.6 (0.7-1.1cm)Left Atrium (MM)3.1 (1.6-4.0cm) LVDd4.8 (3.5-5.6cm)Aortic Root2.1 (2.0-3.7cm) PWd0.7 (0.7-1.1cm)Aortic Cusp Exc.1.7 (1.5-2.0cm) LVDs2.7 (2.5-4.0cm) PWs1.2 cm Normal left ventricular chamber size, systolic function and wall motion. Left ventricular ejection fraction estimated to be 65-70 %. No evidence of pericardial effusion. All other cardiac chamber sizes are within normal limits. Focal aortic valve sclerosis with adequate cusp excursion. Thickened mitral valve leaflets with normal excursion. Pulmonic valve not well visualized. Normal tricuspid valve structure. IVC at normal size with physiologic collapse. A color flow and spectral Doppler study was performed and revealed: No aortic regurgitation. Trace mitral regurgitation.. Mitral diastolic velocities suggest reduced left ventricular relaxation c/w mild LV diastolic dysfunction (Grade I ). Trace tricuspid regurgitation. Tricuspid systolic velocities suggests peak right ventricular systolic pressure of 19 mmHg. No pulmonic regurgitation present.
--- NOTE | 2019-03-05 18:09 | Cardiology Report ---
APPROVED REPORT EKG Measurement Heart [id number] Sinus rhythm with 1st degree AV block Otherwise normal ECG
--- NOTE | 2019-03-05 19:19 | NUR ---
HAND-OFF: Report given to LETTY Steele. Pt is in stable condition; plan of care endorsed.
--- NOTE | 2019-03-05 19:39 | NUR ---
NURSE NOTES: Received patient from LETTY Presley, patient in stable condition, AOx2, complains of pain left side abdomen, ambulatory, IV site on R FA G22, asymptomatic, intact, patent, bed low&locked, side rails upx2, call light within reach, will continue to monitor and reassess
[2019-03-05] MEDS: Albuterol/Ipratropium 3ml neb HHN PRN (20:17)
[2019-03-05] MEDS: HYDROmorphone 1mg/ml Carpuject IVP PRN (23:20)
--- NOTE | 2019-03-05 23:59 | NUR ---
HAND-OFF: Report given to LETTY See, patient in stable condition, plan of care endorsed.
[2019-03-06] VITALS: BP 159/71
--- NOTE | 2019-03-06 | NUR ---
NURSE NOTES: Received report from Keith Murdock RN. Patient in bed AAO X4 with no complaints of acute pain or distress at this time. Kept clean, dry, and comfortable in bed. IV line intact and patent with continuous cardiac monitoring per protocol. Able to ambulate to the bathroom without assist. No S/S of SOB or resp. distress noted. Safety precaution in place; siderails X2 up, call light within reach, bed in lowest position, brakes and alarm on at all times. Needs and ants anticipated and attended. Will continue plan of care and monitor for any changes noted.
[2019-03-06] MEDS: Solu-MEDROL 40mg Inj IVP SCH ×3 (00:33→11:37)
[2019-03-06] MEDS: Albuterol/Ipratropium 3ml neb HHN PRN ×2 (01:21→10:33)
--- NOTE | 2019-03-06 03:13 | NUR ---
HAND-OFF: Report given to Farzana Rose RN. Patient in bed asleep with no S/S of distress. Endorsed plan of care.
[2019-03-06] MEDS: HYDROmorphone 1mg/ml Carpuject IVP PRN ×4 (03:21→23:17)
[2019-03-06 04:00] VITALS: BP 139/66
--- NOTE | 2019-03-06 06:14 | General Progress Note ---
Assessment/Plan Assessment/Plan: Assessment - Lower abd pain - Vaginal discharge - UA c/w UTI - COPD exhacerbation Recommendation - send urine for Cx and GC/Chlamydia screen - [facility] eval - Trial of Levaquin - should cover both UTI and pulmonary issues - Outpatient screening colonoscopy Thank you Vee Teixeira MD Subjective Allergies: Coded Allergies: No Known Allergies (Unverified , 01/09/14) Objective Last 24 Hour Vital Signs Date Time Temp Pulse Resp B/P (MAP) Pulse Ox O2 Delivery O2 Flow Rate FiO2 03/06/19 04:00 97.6 66 19 139/66 (90) 92 03/06/19 04:00 63 03/06/19 03:51 97.3 03/06/19 01:31 70 18 98 Room Air 21 03/06/19 01:21 70 18 95 03/06/19 00:00 73 03/06/19 00:00 97.3 62 19 159/71 (100) 100 03/05/19 21:00 Room Air 03/05/19 20:27 65 18 99 Room Air 21 03/05/19 20:17 63 18 95 03/05/19 20:17 63 18 95 Room Air 21 03/05/19 20:00 97.3 62 19 139/71 (93) 100 03/05/19 20:00 67 03/05/19 16:00 97.0 64 18 104/50 (68) 96 03/05/19 16:00 66 03/05/19 12:00 68 03/05/19 12:00 97.5 67 18 104/60 (75) 93 03/05/19 09:00 Room Air 03/05/19 08:00 96.8 78 18 99/73 (82) 95 03/05/19 08:00 82 03/05/19 07:56 78 20 97 Room Air 21 Intake and Output 03/05/19 03/06/19 19:00 07:00 Intake Total 860 ml Balance 860 ml Intake Oral 860 ml # Voids 4 Laboratory Tests 03/05/19 14:40: D-Dimer 1.00H Height (Feet): 5 Height (Inches): 7.00 Weight (Pounds): 126 Vee Teixeira MD Mar 06, 2019 06:14
[2019-03-06 06:29] LABS: HEMATOCRIT 33.6 % (37.0-47.0); HEMOGLOBIN 10.4 G/DL (12.0-16.0); MEAN CORPUSCULAR VOLUME 79 FL (80-99); PLATELET COUNT 424 K/UL (150-450); RED BLOOD COUNT 4.23 M/UL (4.20-5.40); RED CELL DISTRIBUTION WIDTH 17.9 % (11.6-14.8); WHITE BLOOD COUNT 15.4 K/UL (4.8-10.8)
[2019-03-06 06:42] LABS: ANION GAP 11 mmol/L (5-15); BLOOD UREA NITROGEN 16 mg/dL (7-18); CARBON DIOXIDE 22 MMOL/L (21-32); CHLORIDE 105 MMOL/L (98-107); CREATININE 1.1 MG/DL (0.55-1.30); POTASSIUM 4.2 MMOL/L (3.5-5.1); SODIUM 138 MMOL/L (136-145)
--- NOTE | 2019-03-06 07:24 | NUR ---
NURSE NOTES: Report received from LETTY Hutchinson. Pt is lying comfortably in semi-fowlers. Pt shows no signs of distress, A+Ox4, denies pain/SOB. Respirations are even and unlabored on room air. IV site is intact and saline locked. Bed is at lowest position, brakes engaged, siderails x2, bed alarm on, and call light within reach. Pt is in stable condition; will continue to monitor.
[2019-03-06 08:00] VITALS: BP 137/73
--- NOTE | 2019-03-06 08:32 | Pulmonology Progress Note ---
Assessment/Plan Assessment/Plan IMPRESSION: Exacerbation of COPD. DISCUSSION: Agree with medications and care. Currently, I note the patient is on half NS, DuoNebs, Lovenox, Pepcid, Tapazole, and morphine. Continue low-dose Solu-Medrol. D Dimer borderline high however duplex negative for DVT Subjective Interval Events: None new Constitutional: Reports: no symptoms HEENT: Repors: no symptoms Respiratory: Reports: no symptoms Cardiovascular: Reports: no symptoms Gastrointestinal/Abdominal: Reports: no symptoms Allergies: Coded Allergies: No Known Allergies (Unverified , 01/09/14) Objective Last 24 Hour Vital Signs Date Time Temp Pulse Resp B/P (MAP) Pulse Ox O2 Delivery O2 Flow Rate FiO2 03/06/19 08:00 96.6 60 18 137/73 (94) 92 03/06/19 04:00 97.6 66 19 139/66 (90) 92 03/06/19 04:00 63 03/06/19 03:51 97.3 03/06/19 01:31 70 18 98 Room Air 21 03/06/19 01:21 70 18 95 03/06/19 00:00 73 03/06/19 00:00 97.3 62 19 159/71 (100) 100 03/05/19 21:00 Room Air 03/05/19 20:27 65 18 99 Room Air 21 03/05/19 20:17 63 18 95 03/05/19 20:17 63 18 95 Room Air 21 03/05/19 20:00 97.3 62 19 139/71 (93) 100 03/05/19 20:00 67 03/05/19 16:00 97.0 64 18 104/50 (68) 96 03/05/19 16:00 66 03/05/19 12:00 68 03/05/19 12:00 97.5 67 18 104/60 (75) 93 03/05/19 09:00 Room Air Intake and Output 03/05/19 03/06/19 19:00 07:00 Intake Total 860 ml 120 ml Balance 860 ml 120 ml Intake Oral 860 ml 120 ml # Voids 4 2 General Appearance: no acute distress HEENT: normocephalic Respiratory/Chest: chest wall non-tender, lungs clear Cardiovascular: normal peripheral pulses, normal rate Abdomen: normal bowel sounds Microbiology Date/Time Source Procedure Growth Status 03/04/19 23:00 Urine,Clean Catch Urine Culture - Preliminary Gram Negative Bacillus 1 Resulted Laboratory Tests 03/05/19 14:40: D-Dimer 1.00H 03/06/19 04:45: White Blood Count 15.4#H, Red Blood Count 4.23, Hemoglobin 10.4L, Hematocrit 33.6L, Mean Corpuscular Volume 79L, Mean Corpuscular Hemoglobin 24.7L, Mean Corpuscular Hemoglobin Concent 31.1L, Red Cell Distribution Width 17.9H, Platelet Count 424, Mean Platelet Volume 5.8L, Neutrophils (%) (Auto) , Lymphocytes (%) (Auto) , Monocytes (%) (Auto) , Eosinophils (%) (Auto) , Basophils (%) (Auto) , Neutrophils % (Manual) [Pending], Lymphocytes % (Manual) [Pending], Platelet Estimate [Pending], Platelet Morphology [Pending], Sodium Level 138, Potassium Level 4.2, Chloride Level 105, Carbon Dioxide Level 22, Anion Gap 11, Blood Urea Nitrogen 16, Creatinine 1.1, Estimat Glomerular Filtration Rate > 60, Glucose Level 155H, Calcium Level 9.0 Current Medications Medications (Trade) Dose Ordered Sig/Dawna Route PRN Reason Start Time Stop Time Status Last Admin Dose Admin Acetaminophen (Tylenol) 650 mg Q4H PRN ORAL Mild Pain (Pain Scale 1-3) 03/05/19 01:45 04/04/19 01:44 Albuterol/ Ipratropium (Albuterol/ Ipratropium) 3 ml Q4HRT PRN HHN Shortness of Breath 03/05/19 01:45 03/10/19 01:44 03/06/19 01:21 Aspirin (ASA) 81 mg DAILY ORAL 03/05/19 09:00 04/04/19 08:59 03/05/19 08:39 Dextrose (Dextrose 50%) 25 ml Q30M PRN IV Hypoglycemia 03/05/19 01:45 04/04/19 01:44 Dextrose (Dextrose 50%) 50 ml Q30M PRN IV Hypoglycemia 03/05/19 01:45 04/04/19 01:44 Enoxaparin Sodium (Lovenox) 40 mg Q24H SUBQ 03/05/19 09:00 04/04/19 08:59 03/05/19 08:42 Famotidine (Pepcid) 40 mg DAILY ORAL 03/05/19 09:00 04/04/19 08:59 03/05/19 08:39 Hydromorphone HCl (Dilaudid) 1 mg Q4H PRN IVP For Pain 03/05/19 20:30 03/12/19 20:29 03/06/19 03:21 Levofloxacin (Levaquin) 500 mg DAILY ORAL 03/06/19 09:00 03/13/19 08:59 Methimazole (Tapazole) 5 mg THREE TIMES A DAY ORAL 03/05/19 09:00 04/04/19 08:59 03/05/19 17:28 Methylprednisolone Sodium Succinate (Solu-MEDROL) 40 mg EVERY 6 HOURS IVP 03/05/19 13:18 04/04/19 13:17 03/06/19 05:32 Nitroglycerin (Ntg) 0.4 mg Q5M PRN SL Prn Chest Pain 03/05/19 01:45 04/04/19 01:44 Sodium Chloride 1,000 ml @ 50 mls/hr Q20H IV 03/05/19 02:45 04/04/19 02:44 03/05/19 23:[address] MD Mar 06, 2019 08:32
--- NOTE | 2019-03-06 08:54 | Consultation ---
History of Present Illness General Date patient seen: Mar 06, 2019 Present Illness Allergies: Coded Allergies: No Known Allergies (Unverified , 01/09/14) Medication History Scheduled Methimazole (Methimazole), 10 MG ORAL THREE TIMES A DAY, (Reported) Oxybutynin Chloride (Oxybutynin Chloride), 10 MG ORAL QHS, (Reported) Scheduled PRN Hydrocodone Bit/Acetaminophen 5-325* ([place] 5-325*), 1 TAB ORAL Q6H PRN for For Pain Patient History Healthcare decision maker Resuscitation status Full Code Advanced Directive on File Physical Exam Last 24 Hour Vital Signs Date Time Temp Pulse Resp B/P (MAP) Pulse Ox O2 Delivery O2 Flow Rate FiO2 03/06/19 08:00 63 03/06/19 08:00 96.6 60 18 137/73 (94) 92 03/06/19 04:00 97.6 66 19 139/66 (90) 92 03/06/19 04:00 63 03/06/19 03:51 97.3 03/06/19 01:31 70 18 98 Room Air 21 03/06/19 01:21 70 18 95 03/06/19 00:00 73 03/06/19 00:00 97.3 62 19 159/71 (100) 100 03/05/19 21:00 Room Air 03/05/19 20:27 65 18 99 Room Air 21 03/05/19 20:17 63 18 95 03/05/19 20:17 63 18 95 Room Air 21 03/05/19 20:00 97.3 62 19 139/71 (93) 100 03/05/19 20:00 67 03/05/19 16:00 97.0 64 18 104/50 (68) 96 03/05/19 16:00 66 03/05/19 12:00 68 03/05/19 12:00 97.5 67 18 104/60 (75) 93 03/05/19 09:00 Room Air Intake and Output 03/05/19 03/06/19 19:00 07:00 Intake Total 860 ml 120 ml Balance 860 ml 120 ml Intake Oral 860 ml 120 ml # Voids 4 2 Laboratory Tests Test 03/05/19 14:40 03/06/19 04:45 D-Dimer 1.00 mg/L FEU (0.00-0.49) H White Blood Count 15.4 K/UL (4.8-10.8) #H Red Blood Count 4.23 M/UL (4.20-5.40) Hemoglobin 10.4 G/DL (12.0-16.0) L Hematocrit 33.6 % (37.0-47.0) L Mean Corpuscular Volume 79 FL (80-99) L Mean Corpuscular Hemoglobin 24.7 PG (27.0-31.0) L Mean Corpuscular Hemoglobin Concent 31.1 G/DL (32.0-36.0) L Red Cell Distribution Width 17.9 % (11.6-14.8) H Platelet Count 424 K/UL (150-450) Mean Platelet Volume 5.8 FL (6.5-10.1) L Neutrophils (%) (Auto) % (45.0-75.0) Lymphocytes (%) (Auto) % (20.0-45.0) Monocytes (%) (Auto) % (1.0-10.0) Eosinophils (%) (Auto) % (0.0-3.0) Basophils (%) (Auto) % (0.0-2.0) Neutrophils % (Manual) Pending Lymphocytes % (Manual) Pending Platelet Estimate Pending Platelet Morphology Pending Sodium Level 138 MMOL/L (136-145) Potassium Level 4.2 MMOL/L (3.5-5.1) Chloride Level 105 MMOL/L (98-107) Carbon Dioxide Level 22 MMOL/L (21-32) Anion Gap 11 mmol/L (5-15) Blood Urea Nitrogen 16 mg/dL (7-18) Creatinine 1.1 MG/DL (0.55-1.30) Estimat Glomerular Filtration Rate > 60 mL/min (>60) Glucose Level 155 MG/DL (74-106) H Calcium Level 9.0 MG/DL (8.5-10.1) Height (Feet): 5 Height (Inches): 7.00 Weight (Pounds): 138 Medications Current Medications Medications (Trade) Dose Ordered Sig/Dawna Route PRN Reason Start Time Stop Time Status Last Admin Dose Admin Acetaminophen (Tylenol) 650 mg Q4H PRN ORAL Mild Pain (Pain Scale 1-3) 03/05/19 01:45 04/04/19 01:44 Albuterol/ Ipratropium (Albuterol/ Ipratropium) 3 ml Q4HRT PRN HHN Shortness of Breath 03/05/19 01:45 03/10/19 01:44 03/06/19 01:21 Aspirin (ASA) 81 mg DAILY ORAL 03/05/19 09:00 04/04/19 08:59 03/05/19 08:39 Dextrose (Dextrose 50%) 25 ml Q30M PRN IV Hypoglycemia 03/05/19 01:45 04/04/19 01:44 Dextrose (Dextrose 50%) 50 ml Q30M PRN IV Hypoglycemia 03/05/19 01:45 04/04/19 01:44 Enoxaparin Sodium (Lovenox) 40 mg Q24H SUBQ 03/05/19 09:00 04/04/19 08:59 03/05/19 08:42 Famotidine (Pepcid) 40 mg DAILY ORAL 03/05/19 09:00 04/04/19 08:59 03/05/19 08:39 Hydromorphone HCl (Dilaudid) 1 mg Q4H PRN IVP For Pain 03/05/19 20:30 03/12/19 20:29 03/06/19 03:21 Levofloxacin (Levaquin) 500 mg DAILY ORAL 03/06/19 09:00 03/13/19 08:59 Methimazole (Tapazole) 5 mg THREE TIMES A DAY ORAL 03/05/19 09:00 04/04/19 08:59 03/05/19 17:28 Methylprednisolone Sodium Succinate (Solu-MEDROL) 40 mg EVERY 6 HOURS IVP 03/05/19 13:18 04/04/19 13:17 03/06/19 05:32 Nitroglycerin (Ntg) 0.4 mg Q5M PRN SL Prn Chest Pain 03/05/19 01:45 04/04/19 01:44 Regadenoson (Lexiscan) 0.4 mg ONCE PRN IV stress test 03/06/19 09:00 03/07/19 18:00 Sodium Chloride 1,000 ml @ 50 mls/hr Q20H IV 03/05/19 02:45 04/04/19 02:44 03/05/19 23:22 Assessment/Plan Assessment/Plan: (1) MJ OA (2) Chest pain (3) ACS seen dictated Michael Gibson Mar 06, 2019 08:54
[2019-03-06] MEDS: Aspirin Baby 81mg ORAL SCH (08:56)
[2019-03-06] MEDS: Levofloxacin 500mg tab ORAL SCH (08:56)
[2019-03-06] MEDS: Enoxaparin 40mg Inj SUBQ SCH (08:57)
[2019-03-06] MEDS ORDERED: Lexiscan 0.4mg/5ml syringe IV PRN (09:00)
[2019-03-06] MEDS ORDERED: Lexiscan 0.4mg/5ml syringe IV SCH (09:00)
--- NOTE | 2019-03-06 10:26 | Nephrology Progress Note ---
Assessment/Plan Assessment/Plan: A/P 1. Shortness of breath due to COPD exacerbation. - improved, defer to Pulmonary 2. Acute coronary syndrome with chest pain, most likely pleuritic in nature. - DC today if cleared by cardiology post stress test 3. Dehydration. Resolved 4. Thyroid dysfunction. Continue Tapazole. 5. DVT prophylaxis with Lovenox. 6. GI prophylaxis with famotidine. 7. Opiod dependancy- patient demanding dilaudid to treat UTI 8. UTI- will be treated with Antibiotics only Subjective Date patient seen: Mar 06, 2019 Time patient seen: 10:22 ROS Limited/Unobtainable: No Allergies: Coded Allergies: No Known Allergies (Unverified , 01/09/14) Subjective Patient agitated and c/o wanting more opiods Objective Last 24 Hour Vital Signs Date Time Temp Pulse Resp B/P (MAP) Pulse Ox O2 Delivery O2 Flow Rate FiO2 03/06/19 08:00 63 03/06/19 08:00 96.6 60 18 137/73 (94) 92 03/06/19 04:00 97.6 66 19 139/66 (90) 92 03/06/19 04:00 63 03/06/19 03:51 97.3 03/06/19 01:31 70 18 98 Room Air 21 03/06/19 01:21 70 18 95 03/06/19 00:00 73 03/06/19 00:00 97.3 62 19 159/71 (100) 100 03/05/19 21:00 Room Air 03/05/19 20:27 65 18 99 Room Air 21 03/05/19 20:17 63 18 95 03/05/19 20:17 63 18 95 Room Air 21 03/05/19 20:00 97.3 62 19 139/71 (93) 100 03/05/19 20:00 67 03/05/19 16:00 97.0 64 18 104/50 (68) 96 03/05/19 16:00 66 03/05/19 12:00 68 03/05/19 12:00 97.5 67 18 104/60 (75) 93 Intake and Output 03/05/19 03/06/19 19:00 07:00 Intake Total 860 ml 120 ml Balance 860 ml 120 ml Intake Oral 860 ml 120 ml # Voids 4 2 Laboratory Tests 03/05/19 14:40: D-Dimer 1.00H 03/06/19 04:45: White Blood Count 15.4#H, Red Blood Count 4.23, Hemoglobin 10.4L, Hematocrit 33.6L, Mean Corpuscular Volume 79L, Mean Corpuscular Hemoglobin 24.7L, Mean Corpuscular Hemoglobin Concent 31.1L, Red Cell Distribution Width 17.9H, Platelet Count 424, Mean Platelet Volume 5.8L, Neutrophils (%) (Auto) , Lymphocytes (%) (Auto) , Monocytes (%) (Auto) , Eosinophils (%) (Auto) , Basophils (%) (Auto) , Differential Total Cells Counted 100, Neutrophils % ( Manual) 87H, Lymphocytes % (Manual) 11L, Monocytes % (Manual) 1, Eosinophils % ( Manual) 1, Basophils % (Manual) 0, Band Neutrophils 0, Platelet Estimate Adequate, Platelet Morphology Normal, Hypochromasia 2+, Anisocytosis 2+, Microcytosis 2+, Sodium Level 138, Potassium Level 4.2, Chloride Level 105, Carbon Dioxide Level 22, Anion Gap 11, Blood Urea Nitrogen 16, Creatinine 1.1, Estimat Glomerular Filtration Rate > 60, Glucose Level 155H, Calcium Level 9.0 Height (Feet): 5 Height (Inches): 7.00 Weight (Pounds): 138 General Appearance: no apparent distress, alert EENT: normal ENT inspection Neck: normal alignment, supple Cardiovascular: normal rate, regular rhythm Respiratory/Chest: lungs clear, normal breath sounds Abdomen: non tender, soft Edema: no edema noted Arm (L), no edema noted Arm (R), no edema noted Leg (L), no edema noted Leg (R), no edema noted Pedal (L), no edema noted Pedal (R), no edema noted Generalized Michael Bhatti MD Mar 06, 2019 10:26
--- NOTE | 2019-03-06 10:31 | Discharge Instructions ---
Discharge Instructions Discharge Instructions Services at Discharge: day care Diet: 2 GM sodium (low sodium) Resume Normal Activity?: Yes Activity: light activity Follow Up Orders DC today once cleared by cardiology and GI Levaquin 500 mg daily 7 days Follow up PCP 1 week For Congestive Heart Failure Reminder Report to your physician any weight gain of 5 pounds or more in one week. Michael Bhatti MD Mar 06, 2019 10:31
--- NOTE | 2019-03-06 10:47 | NUR ---
NURSE NOTES: Talked with Edmundo in cardiology. He said that patient won't be able to have stress test today due to the amount of patients who need them today. Told Dr. Lopez who said that we can dc the patient from cardio and she can get the stress test outpatient. Spoke with patient who said she wants to stay another night and get the test done here. Made Dr. Lopez aware and he said he will be here in an hour to speak with her.
[2019-03-06 11:51] LABS: APPEARANCE,URINE SLIGHTLY CLOUDY; BILIRUBIN, URINE NEGATIVE (NEGATIVE); COLOR,URINE PALE YELLOW; GLUCOSE, URINE (UA) NEGATIVE (NEGATIVE); KETONES,URINE NEGATIVE (NEGATIVE); LEUKOCYTE ESTERASE ,URINE 3+ (NEGATIVE); NITRITE,URINE NEGATIVE (NEGATIVE); PH,URINE 6 (4.5-8.0); PROTEIN,URINE 1+ (NEGATIVE); UROBILINOGEN,URINE NORMAL MG/DL (0.0-1.0)
[2019-03-06 11:58] VITALS: BP 118/60
--- NOTE | 2019-03-06 12:15 | Consultation ---
DATE OF CONSULTATION: 03/06/2019 CHIEF COMPLAINT: I was asked to see this patient by Dr. Michael Bhatti for evaluation of abdominal pain. HISTORY OF PRESENT ILLNESS: The patient is a 58-year-old, woman who comes into hospital for shortness of breath over the past week. The patient has been evaluated and has been admitted with diagnosis of COPD exacerbation and is being treated accordingly. The patient also notes one week history of lower abdominal pain in the pelvic area. She points to her bilateral lower quadrants as well as suprapubic area. She complained of some vaginal discharge at the same time although she is not sexually active. She also feels that she may have urine infection as she has had a history of multiple bladder surgeries. Her pattern is consistent with urinary tract infection. She has not had a colonoscopy for screening purposes. PAST MEDICAL HISTORY: History of hyperthyroidism on suppressive medication, history of COPD, history of bladder dysfunction status post surgeries. FAMILY HISTORY: Positive for hypertension. SOCIAL HISTORY: The patient does smoke tobacco but does not drink alcohol. REVIEW OF SYSTEMS: Otherwise negative. PHYSICAL EXAMINATION: GENERAL: The patient is a pleasant woman, seen in her room. HEENT: Normocephalic and atraumatic. Sclerae anicteric. Oropharynx clear. NECK: Supple. CHEST: Revealed coarse breath sounds. CARDIOVASCULAR: Revealed a regular rate. ABDOMEN: Soft. Good bowel sounds. There is minimal lower abdominal tenderness to palpation without guarding or rebound. EXTREMITIES: Revealed no edema. NEUROLOGIC: Nonfocal. LABORATORY DATA: Noted. ASSESSMENT: This patient presents with some lower abdominal discomfort especially in the suprapubic area. This combined with her vaginal discharge and her abnormal urinalysis suggest that the symptoms may be either urinary or genital in origin. I would give the patient a course of Levaquin which should cover both the urinary tract infection as well as infection resulting in her COPD exacerbation. She should also be seen by gynecological services to evaluate for her vaginal discharge. I will also send the urine for chlamydia and gonorrhea screening. The patient was advised to undergo a screening colonoscopy as an outpatient. RECOMMENDATIONS: Per above discussion and per orders written in the chart. Thank you for asking me to participate in the care of this patient. Vee Teixeira M.D. DR: Valdo JOB#: [id number] CC: DAVID
--- NOTE | 2019-03-06 13:10 | Cardiology Progress Note ---
Assessment/Plan Status: stable Assessment/Plan Assessment Chest pain SOB COPD Hyperthryoid Unstable angina Plan: Stress test in AM Aspirin NItro statin BP control Abx per primary Subjective Cardiovascular: Reports: no symptoms Respiratory: Reports: no symptoms Gastrointestinal/Abdominal: Reports: no symptoms Genitourinary: Reports: no symptoms Subjective No acute events, Echo normal LVEF Plan for stress test in AM Objective Last 24 Hour Vital Signs Date Time Temp Pulse Resp B/P (MAP) Pulse Ox O2 Delivery O2 Flow Rate FiO2 03/06/19 11:58 98.7 77 20 118/60 (79) 93 03/06/19 10:34 72 16 98 Room Air 21 76 16 94 03/06/19 09:00 Room Air 03/06/19 08:00 63 03/06/19 08:00 96.6 60 18 137/73 (94) 92 03/06/19 04:00 97.6 66 19 139/66 (90) 92 03/06/19 04:00 63 03/06/19 03:51 97.3 03/06/19 01:31 70 18 98 Room Air 21 03/06/19 01:21 70 18 95 03/06/19 00:00 73 03/06/19 00:00 97.3 62 19 159/71 (100) 100 03/05/19 21:00 Room Air 03/05/19 20:27 65 18 99 Room Air 21 03/05/19 20:17 63 18 95 03/05/19 20:17 63 18 95 Room Air 21 03/05/19 20:00 97.3 62 19 139/71 (93) 100 03/05/19 20:00 67 03/05/19 16:00 97.0 64 18 104/50 (68) 96 03/05/19 16:00 66 General Appearance: no apparent distress, alert EENT: PERRL/EOMI, normal ENT inspection, TMs normal, pharynx normal Neck: non-tender, normal alignment, supple, normal inspection, no JVD Rhythm: NSR Cardiovascular: normal peripheral pulses, normal rate, regular rhythm, no gallop/murmur Respiratory/Chest: chest wall non-tender, lungs clear, normal breath sounds Abdomen: normal bowel sounds, non tender, soft, no organomegaly, no mass Extremities: normal range of motion, non-tender, normal inspection 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, no motor/sensory deficits Intake and Output 03/05/19 03/06/19 19:00 07:00 Intake Total 860 ml 120 ml Balance 860 ml 120 ml Intake Oral 860 ml 120 ml # Voids 4 2 Laboratory Tests Test 03/05/19 14:40 03/06/19 04:45 03/06/19 11:30 D-Dimer 1.00 mg/L FEU (0.00-0.49) H White Blood Count 15.4 K/UL (4.8-10.8) #H Red Blood Count 4.23 M/UL (4.20-5.40) Hemoglobin 10.4 G/DL (12.0-16.0) L Hematocrit 33.6 % (37.0-47.0) L Mean Corpuscular Volume 79 FL (80-99) L Mean Corpuscular Hemoglobin 24.7 PG (27.0-31.0) L Mean Corpuscular Hemoglobin Concent 31.1 G/DL (32.0-36.0) L Red Cell Distribution Width 17.9 % (11.6-14.8) H Platelet Count 424 K/UL (150-450) Mean Platelet Volume 5.8 FL (6.5-10.1) L Neutrophils (%) (Auto) % (45.0-75.0) Lymphocytes (%) (Auto) % (20.0-45.0) Monocytes (%) (Auto) % (1.0-10.0) Eosinophils (%) (Auto) % (0.0-3.0) Basophils (%) (Auto) % (0.0-2.0) Differential Total Cells Counted 100 Neutrophils % (Manual) 87 % (45-75) H Lymphocytes % (Manual) 11 % (20-45) L Monocytes % (Manual) 1 % (1-10) Eosinophils % (Manual) 1 % (0-3) Basophils % (Manual) 0 % (0-2) Band Neutrophils 0 % (0-8) Platelet Estimate Adequate Platelet Morphology Normal Hypochromasia 2+ Anisocytosis 2+ Microcytosis 2+ Sodium Level 138 MMOL/L (136-145) Potassium Level 4.2 MMOL/L (3.5-5.1) Chloride Level 105 MMOL/L (98-107) Carbon Dioxide Level 22 MMOL/L (21-32) Anion Gap 11 mmol/L (5-15) Blood Urea Nitrogen 16 mg/dL (7-18) Creatinine 1.1 MG/DL (0.55-1.30) Estimat Glomerular Filtration Rate > 60 mL/min (>60) Glucose Level 155 MG/DL (74-106) H Calcium Level 9.0 MG/DL (8.5-10.1) Urine Color Pale yellow Urine Appearance Slightly cloudy Urine pH 6 (4.5-8.0) Urine Specific [place] 1.010 (1.005-1.035) Urine Protein 1+ (NEGATIVE) H Urine Glucose (UA) Negative (NEGATIVE) Urine Ketones Negative (NEGATIVE) Urine Blood 5+ (NEGATIVE) H Urine Nitrite Negative (NEGATIVE) Urine Bilirubin Negative (NEGATIVE) Urine Urobilinogen Normal MG/DL (0.0-1.0) Urine Leukocyte Esterase 3+ (NEGATIVE) H Urine RBC 2-4 /HPF (0 - 2) H Urine WBC Tntc /HPF (0 - 2) H Urine Squamous Epithelial Cells Occasional /LPF Urine Bacteria None /HPF (NONE) Chlamydia trachomatis RNA Pending Neisseria gonorrhoeae RNA Pending Microbiology Date/Time Source Procedure Growth Status 03/04/19 23:00 Urine,Clean Catch Urine Culture - Preliminary Gram Negative Bacillus 1 Resulted Raimundo Lopez MD Mar 06, 2019 13:10
--- NOTE | 2019-03-06 14:15 | NUR ---
NURSE NOTES: Patient given Dilaudid 1mg IVP for pain 01/26 to lower abdomen. LETTY Presley witnessed medication administration. Addendum: 03/06/19 at 1417 by BRANDT MIR RN Medication given at 0900.
[2019-03-06] MEDS: Albuterol/Ipratropium 3ml neb HHN SCH ×3 (15:00→22:48)
--- NOTE | 2019-03-06 15:23 | NUR ---
CASE MANAGEMENT:REVIEW 03/06/19 SI: CHEST PAIN. SOB. COPD 98.7 77 20 118/60 93% ON RA WBC+15.4 IS: PREDNISONE PO QD DUONEB HHN Q4HRS RTC LEVAQUIN PO QD ASA PO QD PEPCID PO QD : TELEMETRY STATUS PLAN: STRESS TEST IN AM THEN DISCHARGE
[2019-03-06 16:00] VITALS: BP 130/74
--- NOTE | 2019-03-06 19:20 | NUR ---
NURSE NOTES: Received report from Sakina SAENZ, pt. in bed awake, A/O x's 4- able to make needs known, no signs or symptoms of acute cardiac or respiratory distress noted, bed alarm on, side rails up x's3 and safety brakes engaged, call light with in easy reach, and bed in low position, pt. appears to be sating well on room air at 98%-no distress noted, pt. appears clean and dry- aware she is NPO at midnight as she has her Lexiscan tomorrow am, RFA 22G IV intact and patent, safety measures continued, will cotninue Addendum: 03/06/19 at 2314 by DANIEL MESSINA RN RN continue with plan of care.
--- NOTE | 2019-03-06 19:28 | NUR ---
HAND-OFF: Report given to LETTY Bocanegra. Pt is in stable condition. Sitting up in bed watching tv. Plan of care endorsed.
[2019-03-06 20:00] VITALS: BP 128/68
[2019-03-07] VITALS: BP 136/69
[2019-03-07] MEDS: Albuterol/Ipratropium 3ml neb HHN SCH ×6 (03:00→23:35)
[2019-03-07 04:00] VITALS: BP 125/71
--- NOTE | 2019-03-07 04:30 | Consultation ---
DATE OF CONSULTATION: 03/06/2019 PAIN MANAGEMENT CONSULTATION CONSULTING PHYSICIAN: Flor Campuzano M.D. REFERRING PHYSICIAN: Michael Bhatti M.D. PHYSICIAN CLINICAL EDUCATION COORDINATOR: Earnest Parr CHIEF COMPLAINT: Chest pain. HISTORY OF PRESENT ILLNESS: This is a 58-year-old female, who is being seen on the Med/Surg floor of [facility] for initial pain management consultation. The patient has been admitted under the care of Dr. Bhatti due to her COPD exacerbation, possible chest pain, and possible ACS. At this time, she is complaining of lower abdominal pain recently due to UTI. She will be seen by a company marker and Infectious Disease doctor. Due to the severity of the pain, she was started on Dilaudid 1 mg IV every four hours as needed for severe pain. New prescription was prescribed for Tylenol No. 2 to help severe pain. PAST MEDICAL HISTORY: COPD exacerbation and hyperthyroidism. PAST SURGICAL HISTORY: Bladder surgery, right open reduction and internal fixation, and bilateral varicose veins. SOCIAL HISTORY: History of smoking tobacco. Denies alcohol or IV drug abuse. ALLERGIES: No known drug allergies. MEDICATIONS: Aspirin and Tapazole. REVIEW OF SYSTEMS: Denies rash, fever, chills, sweating, dizziness, drowsiness, blurred vision, sore throat, or change in weight. No shortness of breath, palpitations, or cough. No nausea, vomiting, diarrhea, or blood in the stool or urine. No bowel or bladder incontinence. No dysuria. PHYSICAL EXAMINATION: GENERAL: Alert, awake, and oriented. VITAL SIGNS: Stable. HEENT: PERRLA. NECK: Range of motion is full in all directions. No tenderness to paracervical muscles. No adenopathy. LUNGS: Decreased breath sounds bilaterally. HEART: S1 and S2. Regular. ABDOMEN: Tenderness to palpation. BACK: Range of motion is decreased in flexion and extension. No tenderness to trapezius or rhomboid muscles. EXTREMITIES: Upper and lower extremity range of motion is full in directions. No cyanosis. No clubbing. Sensory is intact. Reflexes are not obtainable. No adenopathy. ASSESSMENT AND PLAN: This is a 58-year-old female with multiple joint osteoarthritis, chest pain, and ACS. The patient will be continued on Dilaudid while here in the hospital. A prescription for Tylenol No. 2, 10 tablets were written for the patient in anticipation for discharge with Narcan in respect. The patient was discussed with Dr. Campuzano and Dr. Campuzano concurred. We will follow up with the patient. Thank you very much for the courtesy of this consultation. Flor Campuzano M.D. ANDRIY Parr DR: ROLANDO JOB#: [id number] CC:
--- NOTE | 2019-03-07 07:20 | NUR ---
HAND-OFF: Report given to Cherry SAENZ, pt. remains stable and no signs of distress noted.
[2019-03-07] MEDS: HYDROmorphone 1mg/ml Carpuject IVP PRN ×4 (07:48→23:59)
--- NOTE | 2019-03-07 07:59 | Pulmonology Progress Note ---
Assessment/Plan Assessment/Plan IMPRESSION: Exacerbation of COPD. DISCUSSION: Agree with medications and care. Currently, I note the patient is on half NS, DuoNebs, Lovenox, Pepcid, Tapazole, and morphine. Suggest DC on PO steroids and PO abx D Dimer borderline high however duplex negative for DVT Subjective Interval Events: None new Constitutional: Reports: no symptoms HEENT: Repors: no symptoms Respiratory: Reports: no symptoms Cardiovascular: Reports: no symptoms Gastrointestinal/Abdominal: Reports: no symptoms Allergies: Coded Allergies: No Known Allergies (Unverified , 01/09/14) Objective Last 24 Hour Vital Signs Date Time Temp Pulse Resp B/P (MAP) Pulse Ox O2 Delivery O2 Flow Rate FiO2 03/07/19 07:00 63 18 96 Room Air 21 55 18 97 03/07/19 04:00 71 03/07/19 04:00 98.0 70 18 125/71 (89) 98 03/07/19 00:00 97.7 73 18 136/69 (91) 97 03/07/19 00:00 78 03/06/19 23:47 97.2 03/06/19 22:47 68 16 99 Room Air 21 68 16 99 03/06/19 21:00 Room Air 03/06/19 20:00 72 03/06/19 20:00 97.2 65 18 128/68 (88) 98 03/06/19 18:45 68 16 99 Room Air 21 66 16 97 03/06/19 16:00 60 03/06/19 16:00 98.7 67 20 130/74 (92) 94 03/06/19 12:00 65 03/06/19 11:58 98.7 77 20 118/60 (79) 93 03/06/19 10:34 72 16 98 Room Air 21 76 16 94 03/06/19 09:00 Room Air 03/06/19 08:00 63 03/06/19 08:00 96.6 60 18 137/73 (94) 92 Intake and Output 03/06/19 03/07/19 19:00 07:00 Intake Total 260 ml Balance 260 ml Intake Oral 260 ml # Voids 3 2 General Appearance: no acute distress HEENT: normocephalic Respiratory/Chest: chest wall non-tender, lungs clear Cardiovascular: normal peripheral pulses, normal rate Microbiology Date/Time Source Procedure Growth Status 03/04/19 23:00 Urine,Clean Catch Urine Culture - Preliminary Gram Negative Bacillus 1 Resulted Laboratory Tests 03/06/19 11:30: Urine Color Pale yellow, Urine Appearance Slightly cloudy, Urine pH 6, Urine Specific [place] 1.010, Urine Protein 1+H, Urine Glucose (UA) Negative, Urine Ketones Negative, Urine Blood 5+H, Urine Nitrite Negative, Urine Bilirubin Negative, Urine Urobilinogen Normal, Urine Leukocyte Esterase 3+H, Urine RBC 2- 4H, Urine WBC TntcH, Urine Squamous Epithelial Cells Occasional, Urine Bacteria None, Chlamydia trachomatis RNA [Pending], Neisseria gonorrhoeae RNA [Pending] 03/07/19 05:20: Troponin I 0.000 Current Medications Medications (Trade) Dose Ordered Sig/Dawna Route PRN Reason Start Time Stop Time Status Last Admin Dose Admin Acetaminophen (Tylenol) 650 mg Q4H PRN ORAL Mild Pain (Pain Scale 1-3) 03/05/19 01:45 04/04/19 01:44 Albuterol/ Ipratropium (Albuterol/ Ipratropium) 3 ml Q4HRT HHN 03/06/19 15:00 03/10/19 01:44 03/07/19 06:59 Aspirin (ASA) 81 mg DAILY ORAL 03/05/19 09:00 04/04/19 08:59 03/06/19 08:56 Dextrose (Dextrose 50%) 25 ml Q30M PRN IV Hypoglycemia 03/05/19 01:45 04/04/19 01:44 Dextrose (Dextrose 50%) 50 ml Q30M PRN IV Hypoglycemia 03/05/19 01:45 04/04/19 01:44 Enoxaparin Sodium (Lovenox) 40 mg Q24H SUBQ 03/05/19 09:00 04/04/19 08:59 03/06/19 08:57 Famotidine (Pepcid) 40 mg DAILY ORAL 03/05/19 09:00 04/04/19 08:59 03/06/19 08:56 Hydromorphone HCl (Dilaudid) 1 mg Q4H PRN IVP For Pain 03/05/19 20:30 03/12/19 20:29 03/07/19 07:48 Levofloxacin (Levaquin) 500 mg DAILY ORAL 03/06/19 09:00 03/13/19 08:59 03/06/19 08:56 Methimazole (Tapazole) 5 mg THREE TIMES A DAY ORAL 03/05/19 09:00 04/04/19 08:59 03/06/19 17:39 Nitroglycerin (Ntg) 0.4 mg Q5M PRN SL Prn Chest Pain 03/05/19 01:45 04/04/19 01:44 Prednisone (predniSONE) 10 mg DAILY ORAL 03/07/19 09:00 04/06/19 08:59 Regadenoson (Lexiscan) 0.4 mg ONCE PRN IV stress test 03/06/19 09:00 03/07/19 18:[address] MD Mar 07, 2019 07:59
[2019-03-07 08:00] VITALS: BP 145/70
--- NOTE | 2019-03-07 08:10 | NUR ---
NURSE NOTES: Received report from LETTY Bocanegra. Patient in bed resting, no active s/s cardiac, respiratory distress noticed at this time. Patient AOX4, on room air, SR with HR 70. Endorsed patient schedule for stress test today and NPO since midnight. Endorsed discharge planning after cleared by stress test. IV removed by patient at this time, new IV inserted on right wrist 22G, asymptomatic, patent, intact. Bed in lowest position, side rails upx2, call light within reach. Will continue to monitor.
[2019-03-07] MEDS: Aspirin Baby 81mg ORAL SCH (08:44)
[2019-03-07] MEDS: Levofloxacin 500mg tab ORAL SCH (08:44)
[2019-03-07] MEDS: Enoxaparin 40mg Inj SUBQ SCH (08:48)
--- NOTE | 2019-03-07 09:46 | Nephrology Progress Note ---
Assessment/Plan Status: stable Assessment/Plan: A/P 1. Shortness of breath due to COPD exacerbation. - improved 2. Acute coronary syndrome with chest pain, most likely pleuritic in nature. - DC today if cleared by cardiology post stress test 3. Dehydration. Resolved 4. Thyroid dysfunction. Tapazole. 5. DVT prophylaxis with Lovenox. 6. GI prophylaxis with famotidine. 7. Opiod dependancy- patient demanding dilaudid to treat UTI 8. UTI- will be treated with Antibiotics only DC today once cleared Subjective Date patient seen: Mar 07, 2019 Time patient seen: 09:17 Allergies: Coded Allergies: No Known Allergies (Unverified , 01/09/14) Subjective Patient in a stress test Objective Last 24 Hour Vital Signs Date Time Temp Pulse Resp B/P (MAP) Pulse Ox O2 Delivery O2 Flow Rate FiO2 03/07/19 08:00 98.0 60 20 145/70 (95) 94 03/07/19 07:00 63 18 96 Room Air 21 55 18 97 03/07/19 04:00 71 03/07/19 04:00 98.0 70 18 125/71 (89) 98 03/07/19 00:00 97.7 73 18 136/69 (91) 97 03/07/19 00:00 78 03/06/19 23:47 97.2 03/06/19 22:47 68 16 99 Room Air 21 68 16 99 03/06/19 21:00 Room Air 03/06/19 20:00 72 03/06/19 20:00 97.2 65 18 128/68 (88) 98 03/06/19 18:45 68 16 99 Room Air 21 66 16 97 03/06/19 16:00 60 03/06/19 16:00 98.7 67 20 130/74 (92) 94 03/06/19 12:00 65 03/06/19 11:58 98.7 77 20 118/60 (79) 93 03/06/19 10:34 72 16 98 Room Air 21 76 16 94 Intake and Output 03/06/19 03/07/19 19:00 07:00 Intake Total 260 ml Balance 260 ml Intake Oral 260 ml # Voids 3 2 Laboratory Tests 03/06/19 11:30: Urine Color Pale yellow, Urine Appearance Slightly cloudy, Urine pH 6, Urine Specific [place] 1.010, Urine Protein 1+H, Urine Glucose (UA) Negative, Urine Ketones Negative, Urine Blood 5+H, Urine Nitrite Negative, Urine Bilirubin Negative, Urine Urobilinogen Normal, Urine Leukocyte Esterase 3+H, Urine RBC 2- 4H, Urine WBC TntcH, Urine Squamous Epithelial Cells Occasional, Urine Bacteria None, Chlamydia trachomatis RNA [Pending], Neisseria gonorrhoeae RNA [Pending] 03/07/19 05:20: Troponin I 0.000 Height (Feet): 5 Height (Inches): 7.00 Weight (Pounds): 138 General Appearance: no apparent distress, alert EENT: normal ENT inspection Neck: normal alignment Cardiovascular: normal rate, regular rhythm Respiratory/Chest: lungs clear, normal breath sounds Abdomen: non tender, soft Edema: no edema noted Arm (L), no edema noted Arm (R), no edema noted Leg (L), no edema noted Leg (R), no edema noted Pedal (L), no edema noted Pedal (R), no edema noted Generalized Michael Bhatti MD Mar 07, 2019 09:46
--- NOTE | 2019-03-07 10:24 | General Progress Note ---
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 D/w Dr. Campuzano and he concurred. Subjective Date patient seen: Mar 07, 2019 Time patient seen: 09:45 - am Constitutional: Reports: no symptoms HEENT: Reports: no symptoms Cardiovascular: Reports: no symptoms Respiratory: Reports: no symptoms Gastrointestinal/Abdominal: Reports: no symptoms Genitourinary: Reports: no symptoms Neurologic/Psychiatric: Reports: no symptoms Endocrine: Reports: no symptoms Hematologic/Lymphatic: Reports: no symptoms Allergies: Coded Allergies: No Known Allergies (Unverified , 01/09/14) Subjective Patient is in bed continues to c/o pain has requested 3 doses of Dilaudid in the last 24hrs. She continues to be followed by cardio due to chest pain. Objective Last 24 Hour Vital Signs Date Time Temp Pulse Resp B/P (MAP) Pulse Ox O2 Delivery O2 Flow Rate FiO2 03/07/19 08:00 98.0 60 20 145/70 (95) 94 03/07/19 07:00 63 18 96 Room Air 21 55 18 97 03/07/19 04:00 71 03/07/19 04:00 98.0 70 18 125/71 (89) 98 03/07/19 00:00 97.7 73 18 136/69 (91) 97 03/07/19 00:00 78 03/06/19 23:47 97.2 03/06/19 22:47 68 16 99 Room Air 21 68 16 99 03/06/19 21:00 Room Air 03/06/19 20:00 72 03/06/19 20:00 97.2 65 18 128/68 (88) 98 03/06/19 18:45 68 16 99 Room Air 21 66 16 97 03/06/19 16:00 60 03/06/19 16:00 98.7 67 20 130/74 (92) 94 03/06/19 12:00 65 03/06/19 11:58 98.7 77 20 118/60 (79) 93 03/06/19 10:34 72 16 98 Room Air 21 76 16 94 Intake and Output 03/06/19 03/07/19 19:00 07:00 Intake Total 260 ml Balance 260 ml Intake Oral 260 ml # Voids 3 2 Laboratory Tests 03/06/19 11:30: Urine Color Pale yellow, Urine Appearance Slightly cloudy, Urine pH 6, Urine Specific [place] 1.010, Urine Protein 1+H, Urine Glucose (UA) Negative, Urine Ketones Negative, Urine Blood 5+H, Urine Nitrite Negative, Urine Bilirubin Negative, Urine Urobilinogen Normal, Urine Leukocyte Esterase 3+H, Urine RBC 2- 4H, Urine WBC TntcH, Urine Squamous Epithelial Cells Occasional, Urine Bacteria None, Chlamydia trachomatis RNA [Pending], Neisseria gonorrhoeae RNA [Pending] 03/07/19 05:20: Troponin I 0.000 Height (Feet): 5 Height (Inches): 7.00 Weight (Pounds): 138 General Appearance: no apparent distress, alert EENT: PERRL/EOMI, normal ENT inspection Neck: non-tender, normal alignment Cardiovascular: normal rate, regular rhythm Respiratory/Chest: decreased breath sounds Abdomen: non tender, soft Extremities: non-tender Edema: no edema noted Generalized Neurologic: alert, oriented x 3 Skin: normal pigmentation Michael Gibson Mar 07, 2019 10:24
--- NOTE | 2019-03-07 10:36 | NUR ---
Per Cardiology, Dr. Lopez agreed to do Dobutamine Stress test instead of Lexiscan. Edmundo from [facility] spoke with Patient. Patient agreed & consented, Dr. Portillo in room to do dobutamine stress test; reviewed patients EKG, spoke with Patient; decided to hold off with dobutamine & proceed with Lexiscan. Per cardiology medication for Lexiscan is not available today. Patient is aware, Dr. Bhatti will be notified by RN.
--- NOTE | 2019-03-07 11:33 | NUR ---
NURSE NOTES: Dr. Bhatti made aware, today pharmacy ran out of medication for stress test, med will be available in 1 hour, per Dr. Lopez, patient can get outpatient and can be discharged. Patient refused to be discharged unless getting result for chest pain. No order given at this time. Will continue to monitor.
[2019-03-07 12:00] VITALS: BP 151/87
--- NOTE | 2019-03-07 13:07 | NUR ---
CASE MANAGEMENT:REVIEW 03/07/19 SI: CHEST PAIN. SOB. COPD 98.0 60 20 145/70 94% ON RA IS: PREDNISONE PO QD DUONEB HHN Q4HRS RTC LEVAQUIN PO QD ASA PO QD PEPCID PO QD : TELEMETRY STATUS DCP: FROM HOME PLAN: STRESS TEST WAS ORDERED YESTERDAY BUT DONE TODAY DOBUTAMINE STRESS TEST WAS ORDERED BUT WAS NOT DONE D/T TO HEART RATE. FORMULA TECHNICIAN ORDERED LEXISCAN FOR TOMORROW
--- NOTE | 2019-03-07 13:40 | NUR ---
*-* INSURANCE *-* ALL CLINICALS AND REVIEWS HAVE BEEN FAXED TO: [facility] F: [phone] REF# [id number]
[2019-03-07 16:00] VITALS: BP 160/80
--- NOTE | 2019-03-07 16:11 | NUR ---
NURSE NOTES: Dr. Bhatti made aware of BP 160/80, HR 67 , no prn BP ordered. Per Dr. Bhatti, coreg 6.25mg PO BID. Order noted, entered, carried out.
--- NOTE | 2019-03-07 19:44 | NUR ---
HAND-OFF: Report given to LETTY Marie.
--- NOTE | 2019-03-07 19:45 | NUR ---
NURSE NOTES: Patient in bed resting comfortably, no active s/s cardiac, respiratory distress noted at this time. Patient AOX4, on room air, SR with HR 65- 70. IV right wrist 22G, asymptomatic, patent, intact. Bed in lowest position, side rails upx2, call light within reach. Will continue to monitor.
[2019-03-07 20:00] VITALS: BP 159/77
[2019-03-07] MEDS: Carvedilol 6.25mg Tab ORAL SCH (20:12)
--- NOTE | 2019-03-07 20:16 | General Progress Note ---
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 - Trial of Levaquin - should cover both UTI and pulmonary issues - Outpatient screening colonoscopy - repeat labs in am Subjective Allergies: Coded Allergies: No Known Allergies (Unverified , 01/09/14) Subjective Still with some lower abd pain tolerating PO WBC elevated yesterday Objective Last 24 Hour Vital Signs Date Time Temp Pulse Resp B/P (MAP) Pulse Ox O2 Delivery O2 Flow Rate FiO2 03/07/19 20:00 97.4 60 18 159/77 (104) 99 03/07/19 19:57 78 18 99 Room Air 21 76 18 97 03/07/19 16:00 69 03/07/19 16:00 98.0 82 18 160/80 (106) 94 03/07/19 14:25 72 18 99 Room Air 21 71 18 98 03/07/19 12:00 97.4 57 18 151/87 (108) 95 03/07/19 12:00 63 03/07/19 11:20 58 18 98 Room Air 21 63 18 97 03/07/19 09:00 Room Air 03/07/19 08:00 98.0 60 20 145/70 (95) 94 03/07/19 08:00 68 03/07/19 07:00 63 18 96 Room Air 21 55 18 97 03/07/19 04:00 71 03/07/19 04:00 98.0 70 18 125/71 (89) 98 03/07/19 00:00 97.7 73 18 136/69 (91) 97 03/07/19 00:00 78 03/06/19 23:47 97.2 03/06/19 22:47 68 16 99 Room Air 21 68 16 99 03/06/19 21:00 Room Air Intake and Output 03/06/19 03/07/19 19:00 07:00 Intake Total 260 ml Balance 260 ml Intake Oral 260 ml # Voids 3 2 Laboratory Tests 03/07/19 05:20: Troponin I 0.000 Height (Feet): 5 Height (Inches): 7.00 Weight (Pounds): 138 Objective WDWN AA woman NCAT supple CTA RR abd soft ND , (+) Pelvic TTP no edema Vee Teixeira MD Mar 07, 2019 20:16
[2019-03-08 00:07] VITALS: BP 123/57
--- NOTE | 2019-03-08 00:42 | NUR ---
HAND-OFF: Report given to LETTY [place].
--- NOTE | 2019-03-08 00:45 | NUR ---
NURSE NOTES: Received patient from LETTY Marie. Patient resting comfortably in bed, alert and talkative. No signs of distress or pain noted. Patient is ambulatory and able to make needs known. IV site checked, patent and intact, no signs of infiltration, redness, erythema, or bleeding. Patient is NPO, no caffeine or chocolate, for cardiac stress test scheduled in AM. Bed is in lowest position, brakes on, and call light within reach. Will continue to monitor.
[2019-03-08] MEDS: Albuterol/Ipratropium 3ml neb HHN SCH ×4 (03:00→14:53)
--- NOTE | 2019-03-08 03:23 | NUR ---
NURSE NOTES: Patient is asleep in bed, resting comfortably. No signs of distress or pain noted. Patient is NPO, no caffeine or chocolate, per cardiac stress test scheduled in AM. Will continue to monitor.
[2019-03-08 04:00] VITALS: BP 156/83
[2019-03-08] MEDS: HYDROmorphone 1mg/ml Carpuject IVP PRN ×2 (04:43→09:15)
[2019-03-08 06:25] LABS: BASOPHILS % (AUTO) 1.4 % (0.0-2.0); EOSINOPHILS % (AUTO) 0.8 % (0.0-3.0); HEMATOCRIT 34.2 % (37.0-47.0); HEMOGLOBIN 10.5 G/DL (12.0-16.0); LYMPHOCYTES % (AUTO) 41.9 % (20.0-45.0); MEAN CORPUSCULAR VOLUME 79 FL (80-99); MONOCYTES % (AUTO) 6.7 % (1.0-10.0); NEUTROPHILS % (AUTO) 49.3 % (45.0-75.0); PLATELET COUNT 442 K/UL (150-450); RED BLOOD COUNT 4.32 M/UL (4.20-5.40); RED CELL DISTRIBUTION WIDTH 18.2 % (11.6-14.8); WHITE BLOOD COUNT 10.4 K/UL (4.8-10.8)
[2019-03-08 06:53] LABS: ALANINE AMINOTRANSFERASE 12 U/L (12-78); ALBUMIN 2.5 G/DL (3.4-5.0); ALBUMIN/GLOBULIN RATIO 0.6 (1.0-2.7); ALKALINE PHOSPHATASE 54 U/L (46-116); ANION GAP 8 mmol/L (5-15); ASPARTATE AMINO TRANSFERASE 11 U/L (15-37); BILIRUBIN,TOTAL 0.2 MG/DL (0.2-1.0); BLOOD UREA NITROGEN 18 mg/dL (7-18); CALCIUM 8.7 MG/DL (8.5-10.1); CARBON DIOXIDE 27 MMOL/L (21-32); CHLORIDE 105 MMOL/L (98-107); CREATININE 0.8 MG/DL (0.55-1.30); POTASSIUM 4.1 MMOL/L (3.5-5.1); SODIUM 139 MMOL/L (136-145)
--- NOTE | 2019-03-08 07:38 | NUR ---
HAND-OFF: Report given to LETTY Paz and LETTY Elias. Patient is awake lying semi-hurst's; receiving breathing treatment. In stable condition.
[2019-03-08 08:01] VITALS: BP 159/76
--- NOTE | 2019-03-08 08:30 | NUR ---
NURSE NOTES: Patient stable. AOx4. No complaints at this time. Bed in lowest position, side rails upx2. Will continue to monitor.
[2019-03-08] MEDS: Levofloxacin 500mg tab ORAL SCH (08:57)
[2019-03-08] MEDS: Aspirin Baby 81mg ORAL SCH (08:57)
[2019-03-08] MEDS: Carvedilol 6.25mg Tab ORAL SCH (08:58)
[2019-03-08] MEDS: Enoxaparin 40mg Inj SUBQ SCH (08:59)
--- NOTE | 2019-03-08 09:03 | General Progress Note ---
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 D/w Dr. Campuzano and he concurred. Subjective Date patient seen: Mar 08, 2019 Time patient seen: 08:00 - am Allergies: Coded Allergies: No Known Allergies (Unverified , 01/09/14) Subjective Constitutional: Reports: no symptoms HEENT: Reports: no symptoms Cardiovascular: Reports: no symptoms Respiratory: Reports: no symptoms Gastrointestinal/Abdominal: Reports: no symptoms Genitourinary: Reports: no symptoms Neurologic/Psychiatric: Reports: no symptoms Endocrine: Reports: no symptoms Hematologic/Lymphatic: Reports: no symptoms Subjective Patient showing no signs of pain or distress. Pain is at a moderate level using 5 doses of Dilaudid in the last 24hrs. At this time has no new complaints. Objective Last 24 Hour Vital Signs Date Time Temp Pulse Resp B/P (MAP) Pulse Ox O2 Delivery O2 Flow Rate FiO2 03/08/19 08:58 68 159/76 03/08/19 08:01 97.5 68 20 159/76 (103) 94 03/08/19 07:40 Room Air 03/08/19 07:24 66 18 99 Room Air 21 62 18 96 03/08/19 04:00 56 03/08/19 04:00 98.0 64 18 156/83 (107) 97 03/08/19 00:07 98.0 66 18 123/57 (79) 94 03/08/19 00:00 57 03/07/19 23:35 71 18 99 Room Air 21 65 18 96 03/07/19 21:00 Room Air 03/07/19 20:12 58 159/77 03/07/19 20:00 61 03/07/19 20:00 97.4 60 18 159/77 (104) 99 03/07/19 19:57 78 18 99 Room Air 21 76 18 97 03/07/19 16:00 69 03/07/19 16:00 98.0 82 18 160/80 (106) 94 03/07/19 14:25 72 18 99 Room Air 21 71 18 98 03/07/19 12:00 97.4 57 18 151/87 (108) 95 03/07/19 12:00 63 03/07/19 11:20 58 18 98 Room Air 21 63 18 97 Intake and Output 03/07/19 03/08/19 19:00 07:00 Intake Total 260 ml Balance 260 ml Intake Oral 260 ml # Voids 1 Laboratory Tests 03/08/19 05:15: White Blood Count 10.4, Red Blood Count 4.32, Hemoglobin 10.5L, Hematocrit 34.2L , Mean Corpuscular Volume 79L, Mean Corpuscular Hemoglobin 24.4L, Mean Corpuscular Hemoglobin Concent 30.8L, Red Cell Distribution Width 18.2H, Platelet Count 442, Mean Platelet Volume 5.8L, Neutrophils (%) (Auto) 49.3, Lymphocytes (%) (Auto) 41.9, Monocytes (%) (Auto) 6.7, Eosinophils (%) (Auto) 0.8, Basophils (%) (Auto) 1.4, Sodium Level 139, Potassium Level 4.1, Chloride Level 105, Carbon Dioxide Level 27, Anion Gap 8, Blood Urea Nitrogen 18, Creatinine 0.8, Estimat Glomerular Filtration Rate > 60, Glucose Level 82, Calcium Level 8.7, Total Bilirubin 0.2, Aspartate Amino Transf (AST/SGOT) 11L, Alanine Aminotransferase (ALT/SGPT) 12, Alkaline Phosphatase 54, Total Protein 6.5, Albumin 2.5L, Globulin 4.0, Albumin/Globulin Ratio 0.6L Height (Feet): 5 Height (Inches): 7.00 Weight (Pounds): 138 Objective General Appearance: no apparent distress, alert EENT: PERRL/EOMI, normal ENT inspection Neck: non-tender, normal alignment Cardiovascular: normal rate, regular rhythm Respiratory/Chest: decreased breath sounds Abdomen: non tender, soft Extremities: non-tender Edema: no edema noted Generalized Neurologic: alert, oriented x 3 Skin: normal pigmentation Michael Gibson Mar 08, 2019 09:03
[2019-03-08 11:28] VITALS: BP 152/81
--- NOTE | 2019-03-08 13:06 | NUR ---
ASE MANAGEMENT:REVIEW 03/08/19 SI: CHEST PAIN. SOB. COPD 98.0 58 20 152/81 95% ON RA H/H-10.5/34.2 IS: IV LEXISCAN X1 PREDNISONE PO QD DUONEB HHN Q4HRS RTC LEVAQUIN PO QD ASA PO QD PEPCID PO QD IV DILAUDID Q4HRS PRN : TELEMETRY STATUS DCP: FROM HOME PLAN: LEXISCAN STRESS TEST IN PROGRESS
--- NOTE | 2019-03-08 13:34 | NUR ---
NURSE NOTES: Stress test complete. Pt given lunch tray.
--- NOTE | 2019-03-08 13:41 | NUR ---
*-* INSURANCE *-* UPDATED CLINICALS AND REVIEWS HAVE BEEN FAXED TO: [facility] F: [phone] REF# [id number]
--- NOTE | 2019-03-08 13:54 | Pulmonology Progress Note ---
Assessment/Plan Assessment/Plan IMPRESSION: Exacerbation of COPD. DISCUSSION: Dc home if stres test negative Subjective Interval Events: None new Constitutional: Reports: no symptoms HEENT: Repors: no symptoms Respiratory: Reports: no symptoms Cardiovascular: Reports: no symptoms Allergies: Coded Allergies: No Known Allergies (Unverified , 01/09/14) Objective Last 24 Hour Vital Signs Date Time Temp Pulse Resp B/P (MAP) Pulse Ox O2 Delivery O2 Flow Rate FiO2 03/08/19 12:00 59 03/08/19 11:28 98.0 58 20 152/81 (104) 95 03/08/19 08:58 68 159/76 03/08/19 08:01 97.5 68 20 159/76 (103) 94 03/08/19 08:00 58 03/08/19 07:40 Room Air 03/08/19 07:24 66 18 99 Room Air 21 62 18 96 03/08/19 04:00 56 03/08/19 04:00 98.0 64 18 156/83 (107) 97 03/08/19 00:07 98.0 66 18 123/57 (79) 94 03/08/19 00:00 57 03/07/19 23:35 71 18 99 Room Air 21 65 18 96 03/07/19 21:00 Room Air 03/07/19 20:12 58 159/77 03/07/19 20:00 61 03/07/19 20:00 97.4 60 18 159/77 (104) 99 03/07/19 19:57 78 18 99 Room Air 21 76 18 97 03/07/19 16:00 69 03/07/19 16:00 98.0 82 18 160/80 (106) 94 03/07/19 14:25 72 18 99 Room Air 21 71 18 98 Intake and Output 03/07/19 03/08/19 19:00 07:00 Intake Total 260 ml Balance 260 ml Intake Oral 260 ml # Voids 1 General Appearance: no acute distress HEENT: atraumatic Respiratory/Chest: chest wall non-tender Cardiovascular: normal peripheral pulses, normal rate Microbiology Date/Time Source Procedure Growth Status 03/06/19 11:30 Urine,Clean Catch Urine Culture - Preliminary Mixed Gram Positive Organism Resulted Laboratory Tests 03/08/19 05:15: White Blood Count 10.4, Red Blood Count 4.32, Hemoglobin 10.5L, Hematocrit 34.2L , Mean Corpuscular Volume 79L, Mean Corpuscular Hemoglobin 24.4L, Mean Corpuscular Hemoglobin Concent 30.8L, Red Cell Distribution Width 18.2H, Platelet Count 442, Mean Platelet Volume 5.8L, Neutrophils (%) (Auto) 49.3, Lymphocytes (%) (Auto) 41.9, Monocytes (%) (Auto) 6.7, Eosinophils (%) (Auto) 0.8, Basophils (%) (Auto) 1.4, Sodium Level 139, Potassium Level 4.1, Chloride Level 105, Carbon Dioxide Level 27, Anion Gap 8, Blood Urea Nitrogen 18, Creatinine 0.8, Estimat Glomerular Filtration Rate > 60, Glucose Level 82, Calcium Level 8.7, Total Bilirubin 0.2, Aspartate Amino Transf (AST/SGOT) 11L, Alanine Aminotransferase (ALT/SGPT) 12, Alkaline Phosphatase 54, Total Protein 6.5, Albumin 2.5L, Globulin 4.0, Albumin/Globulin Ratio 0.6L Current Medications Medications (Trade) Dose Ordered Sig/Dawna Route PRN Reason Start Time Stop Time Status Last Admin Dose Admin Acetaminophen (Tylenol) 650 mg Q4H PRN ORAL Mild Pain (Pain Scale 1-3) 03/05/19 01:45 04/04/19 01:44 Albuterol/ Ipratropium (Albuterol/ Ipratropium) 3 ml Q4HRT HHN 03/06/19 15:00 03/10/19 01:44 03/08/19 07:24 Aspirin (ASA) 81 mg DAILY ORAL 03/05/19 09:00 04/04/19 08:59 03/08/19 08:57 Carvedilol (Coreg) 6.25 mg Q12HR ORAL 03/07/19 21:00 04/06/19 20:59 Dextrose (Dextrose 50%) 25 ml Q30M PRN IV Hypoglycemia 03/05/19 01:45 04/04/19 01:44 Dextrose (Dextrose 50%) 50 ml Q30M PRN IV Hypoglycemia 03/05/19 01:45 04/04/19 01:44 Enoxaparin Sodium (Lovenox) 40 mg Q24H SUBQ 03/05/19 09:00 04/04/19 08:59 03/08/19 08:59 Famotidine (Pepcid) 40 mg DAILY ORAL 03/05/19 09:00 04/04/19 08:59 03/08/19 08:57 Hydromorphone HCl (Dilaudid) 1 mg Q4H PRN IVP For Pain 03/05/19 20:30 03/12/19 20:29 03/08/19 09:15 Levofloxacin (Levaquin) 500 mg DAILY ORAL 03/06/19 09:00 03/13/19 08:59 03/08/19 08:57 Methimazole (Tapazole) 5 mg THREE TIMES A DAY ORAL 03/05/19 09:00 04/04/19 08:59 03/08/19 13:20 Nitroglycerin (Ntg) 0.4 mg Q5M PRN SL Prn Chest Pain 03/05/19 01:45 04/04/19 01:44 Prednisone (predniSONE) 5 mg DAILY ORAL 03/08/19 09:00 04/07/19 08:59 03/08/19 08:57 Regadenoson (Lexiscan) 0.4 mg ONCE PRN IV stress test 03/06/19 09:00 03/08/19 18:00 03/08/19 13:[address] MD Mar 08, 2019 13:54
[2019-03-08] MEDS ORDERED: 1/2 NS 1000ml IV ONE (14:41)
--- NOTE | 2019-03-08 14:49 | NUR ---
NM Myocardial Perfusion scan complete.
--- NOTE | 2019-03-08 15:22 | Diagnostic Imaging Report ---
Indication: chest pain Technique: The study was conducted under the supervision of a elastic tape inserter. lexiscan (regadenoson) infusion over 10 seconds followed by intravenous administration of 32.5 mCi of technetium 99m Myoview was performed. Three plane SPECT imaging of the heart was then performed. A resting study was performed as part of the one-day protocol with 10 mCi of technetium 99m myoview injected intravenously at that time. Three plane SPECT imaging of the heart was obtained. Comparison: None Clinical data: 1. Clinical response: Non ischemic 2. Electrocardiographic response: Non ischemic Findings: The myocardial perfusion scan demonstrates no fixed or reversible perfusion defects. Left ventricular ejection fraction estimated at 77%. IMPRESSION: Negative evaluation
[2019-03-08 16:00] VITALS: BP 137/86
--- NOTE | 2019-03-08 16:21 | NUR ---
NURSE NOTES: Pt has been discharged home, pt was given prescription for narcan spray to be filled. However she did get 3 other medications filled already before she left, night monitor and ID band removed, aware of stress test results, pt dressed calm and cooperative, pt taken down to lobby with med recon and aftercare plan. Pt stated she has all her belongings and will fill her prescription at her pharmacy
--- NOTE | 2019-03-08 16:30 | General Progress Note ---
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 - Trial of Levaquin - should cover both UTI and pulmonary issues - Outpatient screening colonoscopy - patient advised to see a urologist Subjective Allergies: Coded Allergies: No Known Allergies (Unverified , 01/09/14) Subjective Still with some lower abd pain tolerating PO Objective Last 24 Hour Vital Signs Date Time Temp Pulse Resp B/P (MAP) Pulse Ox O2 Delivery O2 Flow Rate FiO2 03/08/19 16:00 97.9 71 18 137/86 (103) 97 03/08/19 14:51 71 18 99 Room Air 21 66 18 96 03/08/19 12:00 59 03/08/19 11:28 98.0 58 20 152/81 (104) 95 03/08/19 08:58 68 159/76 03/08/19 08:01 97.5 68 20 159/76 (103) 94 03/08/19 08:00 58 03/08/19 07:40 Room Air 03/08/19 07:24 66 18 99 Room Air 21 62 18 96 03/08/19 04:00 56 03/08/19 04:00 98.0 64 18 156/83 (107) 97 03/08/19 00:07 98.0 66 18 123/57 (79) 94 03/08/19 00:00 57 03/07/19 23:35 71 18 99 Room Air 21 65 18 96 03/07/19 21:00 Room Air 03/07/19 20:12 58 159/77 03/07/19 20:00 61 03/07/19 20:00 97.4 60 18 159/77 (104) 99 03/07/19 19:57 78 18 99 Room Air 21 76 18 97 Intake and Output 03/07/19 03/08/19 19:00 07:00 Intake Total 260 ml Balance 260 ml Intake Oral 260 ml # Voids 1 Laboratory Tests 03/08/19 05:15: White Blood Count 10.4, Red Blood Count 4.32, Hemoglobin 10.5L, Hematocrit 34.2L , Mean Corpuscular Volume 79L, Mean Corpuscular Hemoglobin 24.4L, Mean Corpuscular Hemoglobin Concent 30.8L, Red Cell Distribution Width 18.2H, Platelet Count 442, Mean Platelet Volume 5.8L, Neutrophils (%) (Auto) 49.3, Lymphocytes (%) (Auto) 41.9, Monocytes (%) (Auto) 6.7, Eosinophils (%) (Auto) 0.8, Basophils (%) (Auto) 1.4, Sodium Level 139, Potassium Level 4.1, Chloride Level 105, Carbon Dioxide Level 27, Anion Gap 8, Blood Urea Nitrogen 18, Creatinine 0.8, Estimat Glomerular Filtration Rate > 60, Glucose Level 82, Calcium Level 8.7, Total Bilirubin 0.2, Aspartate Amino Transf (AST/SGOT) 11L, Alanine Aminotransferase (ALT/SGPT) 12, Alkaline Phosphatase 54, Total Protein 6.5, Albumin 2.5L, Globulin 4.0, Albumin/Globulin Ratio 0.6L Height (Feet): 5 Height (Inches): 7.00 Weight (Pounds): 138 Objective WDWN AA woman NCAT supple CTA RR abd soft ND , (+) Pelvic TTP no edema Vee Teixeira MD Mar 08, 2019 16:30
--- NOTE | 2019-03-10 09:15 | Discharge Summary ---
Discharge Summary Discharge Summary _ DATE OF ADMISSION: 03/05/2019 DATE OF DISCHARGE: 03/08/2019 DISCHARGED BY: Dr. Michael Bhatti CONSULTANTS: Dr. Vee Lopez BRIEF HOSPITAL COURSE: Patient is a 58-year-old female, who was admitted for further evaluation and care of increased shortness of breath and dyspnea over the past week and started developing left sided chest pain radiating down the arm with productive cough. Patient called her recycling center operator in [place] and was told to come in for a visit. However, she was short of breath and had chest pain. She presented to ED for further evaluation. She has medical history significant for hyperthyroidism, COPD and bladder dysfunction. Upon evaluation at the ED, blood pressure was 149/81, pulse rate 69, O2 saturation 94% on room air. Blood work showed normal white count. Hemoglobin and hematocrit were stable. Troponin negative. Urinalysis showed +3 leukocyte esterase, TNTC urine RBC and TNTC urine WBC. EKG showed sinus rhythm with nonspecific STT wave changes. Chest x-ray showed hyperexpanded lung without evident infiltrates. She was given nebulizer treatments. She was started on IV Solu-Medrol. She was given aspirin. She was started empirically on IV antibiotics. She was then admitted for evaluation of COPD exacerbation, chest pain and UTI. She was admitted to monitored floor. Cardiac enzymes were monitored. She was continued on antiplatelet therapy. She was given IV hydration. She was placed on DuoNeb breathing treatment. She was given Solu-Medrol. I show Lovenox for DVT prophylaxis. She was continued on methimazole. She was given GI prophylaxis. GI was consulted. Patient complained of one-week lower abdominal pain and suprapubic area. She also complained of vaginal discharge, although she is not sexually active. She also had multiple bladder surgeries. She was given Levaquin to cover both urinary tract infection as well as infection resulting to COPD exacerbation. Chlamydia and gonorrhea screening were negative. She was advised to follow-up with outpatient gynecology and urology. Urine drug screen was negative. D-dimer was 1.00. Venous duplex of bilateral lower extremity did not show any evidence of thrombosis. Patient management was consulted. She was complaining of lower abdominal pain. She was given Dilaudid 1 mg IV as needed. She was given new prescription for Tylenol #2 for outpatient use. Echocardiogram showed normal LVEF. Cardiac enzymes were negative. She underwent Lexiscan stress test. There wereno fixed or reversible perfusion defect. LVEF estimated 77%. Stress test was negative. She was cleared for discharge. FINAL DIAGNOSES: Acute COPD exacerbation Chest pain, most likely pleuritic in nature Urinary tract infection with E. coli Vaginal discharge Dehydration, resolved Hyperthyroidism Opioid dependency DISPOSITION: Patient was discharged home. DISCHARGE MEDICATIONS: Refer to Discharge Medication List. DISCHARGE INSTRUCTIONS: Follow-up in a week. I have been assigned to complete a discharge summary on this account, I was not involved with the patient's management.--PRESTON George Jacqueline Robles NP Mar 10, 2019 09:15
--- NOTE | 2019-03-11 11:50 | NUR ---
*-* INSURANCE *-* DISCAHRGE SUMMARY HAS BEEN FAXED TO: [facility] F: [phone] REF# [id number]
== END 2019-03-08 16:28 | disposition home or self-care (01) | DRG 140 ==
LOC: EMR 22:57 → 2E 03-05 00:22 → OBSVTOIN 03-05 00:22 → EDBEDREQ 03-05 00:38 → 2E 03-05 13:33
DX: J44.1 Chronic obstructive pulmonary disease with (acute) exacerbation (principal); R07.81 Pleurodynia; N39.0 Urinary tract infection, site not specified; E86.0 Dehydration; B96.20 Unspecified Escherichia coli [E. coli] as the cause of diseases classified elsewhere; E05.90 Thyrotoxicosis, unspecified without thyrotoxic crisis or storm; F11.20 Opioid dependence, uncomplicated; F17.200 Nicotine dependence, unspecified, uncomplicated; M15.9 Polyosteoarthritis, unspecified; Z79.82 Long term (current) use of aspirin
CPT/HCPCS: 36415; 71045; 78452; 80048; 80053; 80307; 81003; 82550; 83605; 83690; 83880; 84484; 85007; 85025; 85379; 85610; 85730; 87086; 87181; 87491; 87590; 93005; 93017; 93306; 93970; 94640; 94664; 96361; 96365; 96375; 99285; J2405; J2785; J7620

== ENCOUNTER 2019-07-25 18:38 | Emergency (ER) | payer OTHER ==
[~2019-07-25] VITALS: Ht 170.2 cm; Wt 58.1 kg
[2019-07-25 18:59] VITALS: BP 111/67
[2019-07-25] MEDS ORDERED: Methocarbamol 500mg tab ORAL ONE (19:15)
[2019-07-25 20:17] LABS: APPEARANCE,URINE CLEAR; BILIRUBIN, URINE NEGATIVE (NEGATIVE); COLOR,URINE PALE YELLOW; GLUCOSE, URINE (UA) NEGATIVE (NEGATIVE); KETONES,URINE NEGATIVE (NEGATIVE); LEUKOCYTE ESTERASE ,URINE 2+ (NEGATIVE); NITRITE,URINE NEGATIVE (NEGATIVE); PH,URINE 6 (4.5-8.0); PROTEIN,URINE 1+ (NEGATIVE); UROBILINOGEN,URINE NORMAL MG/DL (0.0-1.0)
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
[2019-07-25] MEDS ORDERED: NITROFURANTOIN100 M2 ORAL (20:33)
[2019-07-25] MEDS ORDERED: ROBAXIN-500MG ORAL (20:33)
[2019-07-25] MEDS ORDERED: TYLENOL EXTRA500 MG ORAL (20:33)
[2019-07-25 20:50] VITALS: BP 115/69
== END 2019-07-25 20:50 | disposition home or self-care (01) ==
LOC: EMR 19:05
DX: N39.0 Urinary tract infection, site not specified (principal); R31.9 Hematuria, unspecified; M54.9 Dorsalgia, unspecified; J44.9 Chronic obstructive pulmonary disease, unspecified; V49.9XXA Car occupant (driver) (passenger) injured in unspecified traffic accident, initial encounter; Y92.411 Interstate highway as the place of occurrence of the external cause
CPT/HCPCS: 81003; 87086; Z7502; 99283

== ENCOUNTER 2020-03-18 22:22 | Emergency (ER) | payer OTHER ==
[~2020-03-18] VITALS: Ht 170.2 cm; Wt 60.8 kg
[~2020-03-18 22:22] MED LIST changes: +NITROFURANTOIN100 M2 ORAL; +ROBAXIN-500MG ORAL; +TYLENOL EXTRA500 MG ORAL
[2020-03-18 22:36] VITALS: BP 133/79
--- NOTE | 2020-03-18 22:48 | Emergency Room Report ---
History of Present Illness General Chief Complaint: Nausea, Vomiting, and Diarrhea Source: Patient Present Illness HPI This is a 59-year-old female with history of COPD. She presents with chief complaint of nausea and vomiting. Onset for the last couple days. She says she felt little sick on Monday. She has little congestion and low-grade fever. Starting yesterday today she has multiple episode of vomiting. Says she cannot keep anything down. No diarrhea. Cramping pain. No sore throat. Nothing made it better. Try to keep fluid down and she is vomiting it back up. Also with some dysuria and frequency. Allergies: Coded Allergies: No Known Allergies (Unverified , 01/09/14) COVID-19 Screening Contact w/high risk pt: No Experienced COVID-19 symptoms?: No COVID-19 Testing performed RN HYPERBARIC: Yes - 02/10/30 COVID-19 Screening: Negative COVID-19 COVID-19 Testing Source: florent[facility] Patient History Past Medical History: see triage record, old chart reviewed, COPD Past Surgical History: none Pertinent Family History: none Social History: Denies: smoking Now: No Immunizations: other Reviewed Nursing Documentation: PMH: Agreed; PSxH: Agreed Nursing Documentation-PMH Past Medical History: No History, Except For Hx COPD: Yes Review of Systems Eye: Denies: eye pain, blurred vision ENT: Denies: ear pain, nose congestion, throat swelling Respiratory: Denies: cough, shortness of breath Cardiovascular: Denies: chest pain, palpitations Gastrointestinal: Reports: abdominal pain, nausea, vomiting; Denies: diarrhea Musculoskeletal: Denies: back pain, joint pain Skin: Denies: rash Neurological: Denies: headache, numbness Endocrine: Denies: increased thirst, increased urine Hematologic/Lymphatic: Denies: easy bruising All Other Systems: negative except mentioned in HPI Physical Exam Vital Signs Date Time Temp Pulse Resp B/P (MAP) Pulse Ox O2 Delivery O2 Flow Rate FiO2 03/18/20 22:26 97.0 76 18 148/88 (108) 93 Room Air Vitals unremarkable Sp02 EP Interpretation: reviewed, normal General Appearance: well appearing, no apparent distress, alert Head: normocephalic, atraumatic Eyes: bilateral eye PERRL, bilateral eye EOMI ENT: hearing grossly normal, normal pharynx Neck: full range of motion, supple, no meningismus Respiratory: chest non-tender, lungs clear, normal breath sounds Cardiovascular #1: regular rate, rhythm, no murmur Gastrointestinal: non tender, no mass, no organomegaly, no bruit, non- distended, decreased bowel sounds Musculoskeletal: back normal, normal range of motion, gait/station normal Psychiatric: mood/affect normal Medical Decision Making Diagnostic Impression: Primary Impression: Abdominal pain Qualified Codes: R10.30 - Lower abdominal pain, unspecified Additional Impression: UTI (urinary tract infection) Qualified Codes: N30.00 - Acute cystitis without hematuria ER Course Patient presents with abdominal pain and has UTI. No evidence of obstruction or acute abdomen. Will discharge home. CT/MRI/US Diagnostic Results CT/MRI/US Diagnostic Results : Imaging Test Ordered: CT abdomen and pelvis Impression Read by radiologist. Distention of urinary bladder with diffuse wall thickening. Last Vital Signs Date Time Temp Pulse Resp B/P (MAP) Pulse Ox O2 Delivery O2 Flow Rate FiO2 03/18/20 22:36 97.0 78 18 133/79 96 Room Air Status: improved Disposition: HOME, SELF-CARE Condition: Stable Scripts Cephalexin* (KEFLEX*) 500 Mg Capsule 500 MG ORAL TID, #21 CAP Prov: Rehan Jack MD 03/19/20 Hydrocodone/Acetaminophen 5-325* (HYDROCODONE/ACETAMINOPHEN 5-325*) 1 Each Tablet 1 TAB ORAL Q6H PRN for For Pain, #10 TAB 0 Refills Prov: Rehan Jack MD 03/19/20 Referrals: [facility],REFERRING (PCP) Additional Instructions: Increase fluids. Follow-up with your doctor in 2 to 3 days for recheck if not better. Return if worse. Rehan Jack MD Mar 18, 2020 22:48
[2020-03-18 23:08] LABS: BASOPHILS % (AUTO) 2.1 % (0.0-2.0); HEMATOCRIT 46.3 % (37.0-47.0); HEMOGLOBIN 14.1 G/DL (12.0-16.0); MEAN CORPUSCULAR VOLUME 78 FL (80-99); MONOCYTES % (AUTO) 10.3 % (1.0-10.0); NEUTROPHILS % (AUTO) 50.5 % (45.0-75.0); PLATELET COUNT 519 K/UL (150-450); RED BLOOD COUNT 5.92 M/UL (4.20-5.40); RED CELL DISTRIBUTION WIDTH 19.6 % (11.6-14.8); WHITE BLOOD COUNT 9.2 K/UL (4.8-10.8)
[2020-03-18 23:16] LABS: APPEARANCE,URINE VERY CLOUDY; BILIRUBIN, URINE NEGATIVE (NEGATIVE); COLOR,URINE PALE YELLOW; GLUCOSE, URINE (UA) NEGATIVE (NEGATIVE); KETONES,URINE 2+ (NEGATIVE); LEUKOCYTE ESTERASE ,URINE 3+ (NEGATIVE); NITRITE,URINE NEGATIVE (NEGATIVE); PH,URINE 6 (4.5-8.0); PROTEIN,URINE 3+ (NEGATIVE); UROBILINOGEN,URINE NORMAL MG/DL (0.0-1.0)
[2020-03-18 23:27] LABS: CREATININE 1.2 MG/DL (0.55-1.30); POTASSIUM 3.4 MMOL/L (3.5-5.1)
--- NOTE | 2020-03-18 23:28 | Diagnostic Imaging Report ---
EXAM: CT Abdomen and Pelvis Without Intravenous Contrast CLINICAL HISTORY: ABD PAIN TECHNIQUE: Axial computed tomography images of the abdomen and pelvis without intravenous contrast. CTDI is 3.8 mGy and DLP is 181.6 mGy-cm. One or more of the following dose reduction techniques were used: automated exposure control, adjustment of the mA and/or kV according to patient size, use of iterative reconstruction technique. COMPARISON: None available. FINDINGS: Lung bases: Unremarkable. No mass. No consolidation. ABDOMEN: Liver: Subtle hypodensities within the liver, may represent cysts. Gallbladder and bile ducts: Unremarkable. No calcified stones. No ductal dilation. Pancreas: Unremarkable. No ductal dilation. Spleen: Unremarkable. No splenomegaly. Adrenals: Unremarkable. No mass. Kidneys and ureters: Unremarkable. No obstructing stones. No hydronephrosis. Stomach and bowel: Unremarkable. No obstruction. No mucosal thickening. PELVIS: Appendix: Appendix is normal. Bladder: Mild diffuse urinary bladder wall thickening measuring 6 mm. The urinary bladder is distended. No stones. Reproductive: Unremarkable as visualized. ABDOMEN and PELVIS: Intraperitoneal space: Unremarkable. No free air. No significant fluid collection. Bones/joints: Bilateral total hip arthroplasties. No acute fracture. No dislocation. Soft tissues: Unremarkable. Vasculature: Atherosclerotic vascular disease. No abdominal aortic aneurysm. Lymph nodes: Unremarkable. No enlarged lymph nodes. IMPRESSION: Distention of the urinary bladder with mild diffuse wall thickening. Recommend correlation with exam for underlying cystitis.
[2020-03-18 23:32] LABS: ALBUMIN 3.7 G/DL (3.4-5.0); ALBUMIN/GLOBULIN RATIO 0.7 (1.0-2.7); BILIRUBIN,TOTAL 0.6 MG/DL (0.2-1.0)
[2020-03-18] MEDS ORDERED: cefTRIAXone 1 GM in NS 55 ML IVPB ONE (23:45)
[2020-03-19] MEDS ORDERED: Morphine Sulfate 4mg/ml Inj (IV USE ONLY) IVP ONE
[2020-03-19] MEDS ORDERED: HYDROCODON-ACE1 EA15 ORAL (00:01)
[2020-03-19] MEDS ORDERED: CEPHALEXIN500 MG ORAL (00:01)
[2020-03-19 00:50] VITALS: BP 135/82
== END 2020-03-19 00:50 | disposition home or self-care (01) ==
LOC: EMR 22:38
DX: N30.00 Acute cystitis without hematuria (principal); R10.30 Lower abdominal pain, unspecified; J44.9 Chronic obstructive pulmonary disease, unspecified; R11.2 Nausea with vomiting, unspecified
CPT/HCPCS: 36415; 74176; 80053; 81003; 83690; 85025; 87086; 87181; 96361; 96365; 96375; J0696; J2270; J2405; J7030; Z7502; 99284